=== PATIENT | female | born 1950 | race Two or more races ===

== ENCOUNTER 2016-06-19 16:19 | Inpatient (IN) | payer MEDICAID, OTHER ==
[~2016-06-19] VITALS: Ht 157.5 cm; Wt 81.6 kg
[~2016-06-19 16:19] MED LIST: ATIVAN0.5 MG ORAL; ATORVASTATIN CA10 MG ORAL; OYSTER SHELL C500 MG PO; RANITIDINE HCL150 MG ORAL; REGLAN10 MG PO; TRAMADOL HCL50 MG ORAL
[2016-06-19 16:39] VITALS: BP 123/64
[2016-06-19] MEDS ORDERED: cefTRIAXone 1 GM in NS 55 ML IV ONE (17:30)
[2016-06-19] MEDS ORDERED: Solu-MEDROL 125mg Inj IVP ONE (17:30)
[2016-06-19] MEDS ORDERED: Albuterol ud Inhalation HHN ONE (17:30)
[2016-06-19] MEDS ORDERED: Ipratropium 0.02% Inh Soln 2.5ml UD HHN ONE (17:30)
[2016-06-19] MEDS ORDERED: Morphine Sulfate 4mg/ml Inj IVP ONE (17:30)
[2016-06-19 18:05] LABS: BASOPHILS % (AUTO) 0.9 % (0.0-2.0); EOSINOPHILS % (AUTO) 3.3 % (0.0-3.0); LYMPHOCYTES % (AUTO) 29.9 % (20.0-45.0); MEAN CORPUSCULAR HEMOGLOBIN 30.6 PG (27.0-31.0); MEAN CORPUSCULAR VOLUME 85 FL (80-99); MEAN PLATELET VOLUME 6.9 FL (6.5-10.1); MONOCYTES % (AUTO) 8.3 % (1.0-10.0); NEUTROPHILS % (AUTO) 57.6 % (45.0-75.0); PLATELET COUNT 210 K/UL (150-450); RED BLOOD COUNT 3.91 M/UL (4.20-5.40); RED CELL DISTRIBUTION WIDTH 11.7 % (11.6-14.8); WHITE BLOOD COUNT 8.4 K/UL (4.8-10.8)
[2016-06-19 18:21] LABS: PROTHROMBIN TIME 9.8 SEC (9.30-11.50)
[2016-06-19 18:26] LABS: TROPONIN I < 0.30 ng/mL (<=0.30)
[2016-06-19 18:30] LABS: ALANINE AMINOTRANSFERASE 13 U/L (3-33); ALBUMIN/GLOBULIN RATIO 1.4 (1.0-2.7); ANION GAP 13 (5-15); ASPARTATE AMINO TRANSFERASE 8 U/L (5-40); CALCIUM 8.8 mg/dL (8.6-10.2); CARBON DIOXIDE 25 mEQ/L (20-30); CHLORIDE 103 mEQ/L (98-107); CREATININE 0.7 mg/dL (0.5-0.9); GLOMERULAR FILTRATION RATE > 60 mL/min (>60); HEMOLYSIS 9; POTASSIUM 3.8 mEQ/L (3.4-4.9); SODIUM 141 mEQ/L (135-145); TOTAL PROTEIN 6.2 g/dL (6.6-8.7)
[2016-06-19 18:39] VITALS: BP 131/62
--- NOTE | 2016-06-19 18:43 | Emergency Room Report ---
History of Present Illness General Chief Complaint: Dyspnea/Respdistress Source: Patient Present Illness HPI The patient is suffering from upper respiratory illness for about a month. She' s recently taken azithromycin by her doctor and and was prescribed an inhaler. She still has a cough that is keeping her awake at night. Also she is complaining of chest pain. The pain is intermittently severe 9/10, pleuritic and worse with coughing, not radiating. No productive phlegm. Inhaler has been used, some improvement with this. No NVD, extremity swelling, LANDEROS, rashes, dysuria. No recent fevers, though she feels chilled occasionally. Allergies: Coded Allergies: No Known Allergies (Unverified , 07/16/12) Patient History Past Medical History: see triage record Social History: Denies: smoking Social History Narrative with daughter, from [facility] Now: No Reviewed Nursing Documentation: PMH: Agreed, PSxH: Agreed Nursing Documentation-PMH Past Medical History: No History, Except For Hx Cardiac Problems: Yes - high cholesterol Hx Neurological Problems: Yes - anx depression Review of Systems All Other Systems: negative except mentioned in HPI Physical Exam Vital Signs Date Time Temp Pulse Resp B/P Pulse Ox O2 Delivery O2 Flow Rate FiO2 06/19/16 16:30 98.1 87 16 123/64 100 Room Air 06/19/16 17:33 21 Sp02 EP Interpretation: reviewed, normal General Appearance: well appearing, no apparent distress, GCS 15 Head: normocephalic, atraumatic Eyes: bilateral eye PERRL, bilateral eye normal inspection ENT: moist mucus membranes Neck: supple Respiratory: lungs clear, normal breath sounds Cardiovascular #1: regular rate, rhythm, no edema Cardiovascular #2: 2+ radial (R) Gastrointestinal: normal inspection, normal bowel sounds, non tender, no mass, non-distended, overweight Musculoskeletal: back normal, gait/station normal, normal range of motion, no calf tenderness Neurologic: alert, oriented x3, grossly normal Psychiatric: mood/affect normal Skin: normal inspection, warm/dry Medical Decision Making Diagnostic Impression: Primary Impression: Dyspnea Qualified Codes: R06.00 - Dyspnea, unspecified Additional Impressions: Chest pain Qualified Codes: R07.1 - Chest pain on breathing Pulmonary embolism Qualified Codes: I26.99 - Other pulmonary embolism without acute cor pulmonale Bronchospasm ER Course Patient presents with dyspnea and chest pain. It wheezing. She's post treatment with antibiotics recently. Differential includes pneumonia, asthmatic bronchitis, viral syndrome, pulmonary embolus. Also chest x-ray will be taken. D-dimer is ordered and if elevated a CT angiogram will be obtained. To be treated with albuterol and Solu-Medrol and started on antibiotics at this time. EKG is unremarkable. Chest x-ray does not show infiltrate. D-dimer returned quite elevated. The patient is improved with treatment in our a CT angiogram is ordered. Eosinophilia. CTA read as possible PEs. Heparin ordered. Improved with treatment. Admitted telemetry Dr. Flores. Laboratory Tests Test 06/19/16 17:30 06/19/16 19:00 White Blood Count 8.4 K/UL (4.8-10.8) Red Blood Count 3.91 M/UL (4.20-5.40) L Hemoglobin 12.0 G/DL (12.0-16.0) Hematocrit 33.3 % (37.0-47.0) L Mean Corpuscular Volume 85 FL (80-99) Mean Corpuscular Hemoglobin 30.6 PG (27.0-31.0) Mean Corpuscular Hemoglobin Concent 36.0 G/DL (32.0-36.0) Red Cell Distribution Width 11.7 % (11.6-14.8) Platelet Count 210 K/UL (150-450) Mean Platelet Volume 6.9 FL (6.5-10.1) Neutrophils (%) (Auto) 57.6 % (45.0-75.0) Lymphocytes (%) (Auto) 29.9 % (20.0-45.0) Monocytes (%) (Auto) 8.3 % (1.0-10.0) Eosinophils (%) (Auto) 3.3 % (0.0-3.0) H Basophils (%) (Auto) 0.9 % (0.0-2.0) Prothrombin Time 9.8 SEC (9.30-11.50) Prothrombin Time INR 1.0 (0.9-1.1) PTT 30 SEC (23-33) D-Dimer 1013 ng/mL (<500) H Sodium Level 141 mEQ/L (135-145) Potassium Level 3.8 mEQ/L (3.4-4.9) Chloride Level 103 mEQ/L (98-107) Carbon Dioxide Level 25 mEQ/L (20-30) Anion Gap 13 (5-15) Blood Urea Nitrogen 17 mg/dL (7-23) Creatinine 0.7 mg/dL (0.5-0.9) Estimate Glomerular Filtration Rate > 60 mL/min (>60) Glucose Level 147 mg/dL (74-106) H Lactic Acid Level 1.40 mmol/L (0.66-2.22) Calcium Level 8.8 mg/dL (8.6-10.2) Magnesium Level 2.0 mg/dL (1.7-2.5) Total Bilirubin < 0.2 mg/dL (0.0-1.2) Aspartate Amino Transferase (AST) 8 U/L (5-40) Alanine Aminotransferase (ALT) 13 U/L (3-33) Alkaline Phosphatase 67 U/L (35-104) Total Creatine Kinase 107 U/L (26-140) Troponin I < 0.30 ng/mL (<=0.30) Pro-B-Type Natriuretic Peptide 65 pg/mL (0-125) Total Protein 6.2 g/dL (6.6-8.7) L Albumin 3.7 g/dL (3.5-5.2) Globulin 2.5 g/dL Albumin/Globulin Ratio 1.4 (1.0-2.7) Urine Color Pale yellow Urine Appearance Clear Urine pH 6 (4.5-8.0) Urine Specific [place] 1.010 (1.005-1.035) Urine Protein Negative (NEGATIVE) Urine Glucose (UA) Negative (NEGATIVE) Urine Ketones Negative (NEGATIVE) Urine Occult Blood Negative (NEGATIVE) Urine Nitrite Negative (NEGATIVE) Urine Bilirubin Negative (NEGATIVE) Urine Urobilinogen Normal MG/DL (0.0-1.0) Urine Leukocyte Esterase 2+ (NEGATIVE) H Urine RBC 0-2 /HPF (0 - 2) Urine WBC 2-4 /HPF (0 - 2) Urine Squamous Epithelial Cells Few /LPF (NONE/OCC) Urine Bacteria Few /HPF (NONE) EKG Diagnostic Results Rate: normal Rhythm: NSR ST Segments: no acute changes Rhythm Strip Diag. Results EP Interpretation: yes Rhythm: NSR, no PVC's, no ectopy Chest X-Ray Diagnostic Results EP Interpretation: Yes Findings: no consolidation, no effusion, no pneumothorax, no acute cardiopulmonary disease Number of Views: 1 CT/MRI/US Diagnostic Results CT/MRI/US Diagnostic Results : Imaging Test Ordered: CTA chest Impression possible PEs Last Vital Signs Date Time Temp Pulse Resp B/P Pulse Ox O2 Delivery O2 Flow Rate FiO2 06/19/16 20:30 76 18 119/59 99 Room Air 06/19/16 18:39 98.1 06/19/16 17:51 21 Status: improved Disposition: ADMITTED INPATIENT Condition: Serious Referrals: [facility],REFERRING (PCP) Juan Lopez M.D. Jun 19, 2016 18:43
[2016-06-19 19:30] VITALS: BP 110/47
[2016-06-19 19:30] LABS: APPEARANCE,URINE CLEAR; KETONES,URINE NEGATIVE (NEGATIVE); LEUKOCYTE ESTERASE ,URINE 2+ (NEGATIVE); NITRITE,URINE NEGATIVE (NEGATIVE); PH,URINE 6 (4.5-8.0); PROTEIN,URINE NEGATIVE (NEGATIVE); UROBILINOGEN,URINE NORMAL MG/DL (0.0-1.0)
[2016-06-19 19:39] LABS: BACTERIA,URINE FEW /HPF; RBC,URINE 0-2 /HPF (0 - 2); SQUAMOUS EPITHELIAL CELL,UR FEW /LPF (NONE/OCC)
--- NOTE | 2016-06-19 20:28 | History & Physical ---
History and Physical History & Physicial HP dictated # [id number] KELLY WAGNER Jun 19, 2016 20:28
[2016-06-19 20:30] VITALS: BP 119/59
[2016-06-19] MEDS ORDERED: Morphine Sulfate 2mg/ml Inj IVP PRN (20:30)
[2016-06-19] MEDS ORDERED: Zolpidem 5mg tab ORAL PRN (20:30)
[2016-06-19] MEDS ORDERED: Morphine Sulfate 4mg/ml Inj IVP PRN (20:30)
[2016-06-19] MEDS ORDERED: Milk of Magnesia 30ml Ud ORAL PRN (20:30)
[2016-06-19] MEDS ORDERED: Heparin 25,000u/D5W 500ml 500 ML IV SCH ×3 (21:00→21:44)
[2016-06-19] MEDS: Ipratropium 0.02% Inh Soln 2.5ml UD HHN SCH (21:00)
[2016-06-19] MEDS ORDERED: Heparin 5000 units/ml inj IV ONE ×2 (21:00→21:30)
[2016-06-19 21:30] VITALS: BP 114/74
[2016-06-19 22:00] VITALS: BP 124/63
[2016-06-20] VITALS (7 sets, daily range): BP systolic 97–134; BP diastolic 46–75
[2016-06-20] MEDS: Ipratropium 0.02% Inh Soln 2.5ml UD HHN SCH ×4 (00:53→19:29)
[2016-06-20] MEDS: Heparin 25,000u/D5W 500ml 500 ML IV SCH ×2 (01:08→14:39)
[2016-06-20 01:30] LABS: MEAN CORPUSCULAR HEMOGLOBIN 28.2 PG (27.0-31.0); MEAN CORPUSCULAR HGB CONC 32.6 G/DL (32.0-36.0); MEAN CORPUSCULAR VOLUME 87 FL (80-99); MEAN PLATELET VOLUME 7.2 FL (6.5-10.1); PLATELET COUNT 229 K/UL (150-450); RED BLOOD COUNT 4.43 M/UL (4.20-5.40); RED CELL DISTRIBUTION WIDTH 12.3 % (11.6-14.8); WHITE BLOOD COUNT 8.5 K/UL (4.8-10.8)
[2016-06-20 01:49] LABS: CHOLESTEROL/HDL RATIO 2.9 (3.3-4.4)
[2016-06-20 01:50] LABS: TROPONIN I < 0.30 ng/mL (<=0.30)
[2016-06-20 02:00] LABS: THYROID STIMULATING HORMONE 0.437 uIU/mL (0.300-4.500)
--- NOTE | 2016-06-20 03:48 | History and Physical Report ---
DATE OF ADMISSION: 06/19/2016 CHIEF COMPLAINT: Shortness of breath and chest pain. HISTORY OF PRESENT ILLNESS: This is a 65-year-old female, who has had problems with breathing for about a months now. She said she has had a cough and occasional sputum. She feels worse when she lays down. She has had chest pain on and off. Today, she came with again chest pain and shortness of breath, which were worse. To the emergency room, the patient was admitted. PAST MEDICAL HISTORY: No known previous history of coronary disease No history of diabetes or hypertension. She has a history of hypercholesterolemia. MEDICATIONS: At admission none. SOCIAL HISTORY: No history of smoking or alcohol abuse. The patient lives at home. ALLERGIES: No known drug allergies. REVIEW OF SYSTEMS: Noncontributory except what was mentioned. PHYSICAL EXAMINATION: GENERAL: The patient is a 65-year-old female, in no acute distress. VITAL SIGNS: Blood pressure is 110/47, pulse 72, temperature 98.1, and respiratory rate is 15. HEENT: Pale conjunctivae. Anicteric sclerae. NECK: Supple. LUNGS: Clear to auscultation. HEART: S1 and S2 without murmurs or rubs. ABDOMEN: Soft and nontender. EXTREMITIES: No cyanosis or edema. LABORATORY FINDINGS: CBC shows WBC of 8.4, hematocrit is 32.3, hemoglobin is 12, and platelets 210,000. Chemistry panel shows sodium of 141, potassium 3.8, chloride 103, CO2 25, BUN is 17, creatinine 0.7, blood sugar is 147, lactic acid 1.4, and albumin is 2.7. UA shows no protein, basically benign. ASSESSMENT: This is a 65-year-old female, who has had chest pain on and off as well as shortness of breath for a month. The risk factor is mainly hyperlipidemia for coronary artery disease. Her symptoms also could be related to congestive heart failure as the patient's shortness of breath gets worse when she is lying down, finally underlying lung issues, such as chronic bronchitis cannot be ruled out. PLAN: The patient will be admitted to telemetry. She will be ruled out for myocardial infarction by troponins. An echocardiogram will be obtained to assess LV function. The patient will have a CT chest and result will be checked. We will also order lipid panel with [facility]. Edilberto Flores M.D. DR: SANNA JOB#: [id number] CC: [facility]
--- NOTE | 2016-06-20 09:27 | Diagnostic Imaging Report ---
Indications: Chest pain, shortness of breath, cough, respiratory congestion, elevated d-dimer level Technique: Continuous helical CT imaging of the thorax was performed with automatic exposure control, following bolus intravenous administration of nonionic iodine contrast, on a Siemens sensation [address] scanner. Axial images reconstructed at 3 mm slice thickness and 1.5 mm interval. Coronal and sagittal images were reconstructed at 3 mm slice thickness. Coronal and sagittal two-dimensional maximum intensity projection and three-dimensional volume-rendered images were reconstructed on a stand alone workstation. CTDI volume(s): 13x3, 25, 30 mGy Total DLP: 949 mGy-cm Findings: Comparison: None Motion artifact substantially degrades images. There is suggestion of one or more small low attenuation intraluminal filling defects within one or more branches of the right pulmonary artery supplying the posterior basal segment of the right lower lobe. This area is especially degraded by motion motion with substantial misregistration/stomach artifact. No other pulmonary arterial intraluminal filling defects are demonstrated. Central pulmonary arteries are not overtly enlarged. Heart is overall enlarged without significant left ventricular enlargement. No pericardial abnormality. Thoracic aorta and great vessels are patent and well-opacified with mild scattered calcified plaquing, normal in caliber and configuration. No evidence of aneurysm, dissection, or leak. No mediastinal or hilar enlarged lymph nodes, other abnormal mass or fluid collection. Irregular pleural-based linear densities and mildly increased interstitial markings and dependent portions of both lung bases, right greater than left. Elevation of right hemidiaphragm. No obvious pleural abnormality. 2 cm circumscribed nodular parenchymal asymmetry lateral aspect right breast. Remainder chest wall soft tissues nonfocal. Imaged upper abdominal anatomy unremarkable. Multilevel disc space narrowing with marginal osteophyte formation, vacuum phenomenon in thoracic spine. IMPRESSION: One or more small pulmonary emboli in right pulmonary arterial branches to the posterior basal segment of the right lower lobe cannot be excluded, due to significant motion and resultant artifact. No evidence of large central pulmonary emboli or elevated right heart pressure. Bilateral pulmonary dependent opacities most likely atelectatic in nature Cardiomegaly Masslike parenchymal symmetry right breast, nonspecific. Mammographic and sonographic correlation recommended. Degenerative spondylosis Preliminary report placed in PACS, findings discussed with Dr. Lopez, physician, by telephone 06/19/16 at 2662
--- NOTE | 2016-06-20 11:27 | General Progress Note ---
Assessment/Plan Problem List: (1) Dyspnea ICD Codes: R06.00 - Dyspnea, unspecified SNOMED: 426310367 Qualifiers: Qualified Codes: R06.00 - Dyspnea, unspecified (2) Pulmonary embolism ICD Codes: I26.99 - Other pulmonary embolism without acute cor pulmonale SNOMED: 94471393, [id number] Qualifiers: Qualified Codes: I26.99 - Other pulmonary embolism without acute cor pulmonale (3) Chest pain ICD Codes: R07.9 - Chest pain, unspecified SNOMED: [id number] Qualifiers: Qualified Codes: R07.1 - Chest pain on breathing Assessment/Plan Check Echo pulm consult Discussed with family anticoagulation Subjective Allergies: Coded Allergies: No Known Allergies (Unverified , 07/16/12) Subjective slightly better Objective Last 24 Hour Vital Signs Date Time Temp Pulse Resp B/P Pulse Ox O2 Delivery O2 Flow Rate FiO2 06/20/16 08:01 64 06/20/16 07:56 98.8 76 18 105/65 95 Room Air 06/20/16 07:18 77 18 100 Nasal Cannula 2.0 06/20/16 07:12 73 14 99 Nasal Cannula 2.0 06/20/16 04:00 78 06/20/16 04:00 99.1 73 18 125/61 97 Nasal Cannula 2.0 28 06/20/16 00:54 73 18 100 Nasal Cannula 2.0 28 06/20/16 00:50 28 06/20/16 00:50 71 14 99 Nasal Cannula 2.0 28 06/20/16 00:00 82 06/20/16 00:00 98.1 81 18 122/72 95 Room Air 21 06/19/16 22:07 98.1 65 15 124/63 95 Room Air 21 06/19/16 22:00 65 15 124/63 95 Room Air 06/19/16 21:30 81 16 114/74 98 Room Air 06/19/16 20:30 76 18 119/59 99 Room Air 06/19/16 19:30 72 15 110/47 97 Room Air 06/19/16 18:39 98.1 83 16 131/62 100 Room Air 06/19/16 18:27 98.1 06/19/16 17:51 72 18 100 Room Air 21 06/19/16 17:33 60 14 100 Room Air 21 06/19/16 17:33 60 14 Room Air 21 06/19/16 17:33 21 06/19/16 16:39 87 16 Room Air 06/19/16 16:39 98.1 69 16 123/64 100 Room Air 06/19/16 16:30 98.1 87 16 123/64 100 Room Air Intake and Output 06/19/16 06/20/16 19:00 07:00 Intake Total 120 ml 473.651 ml Balance 120 ml 473.651 ml Intake Oral 120 ml 240 ml IV Total 233.651 ml # Voids 1 Laboratory Tests 06/19/16 17:30: White Blood Count 8.4, Red Blood Count 3.91L, Hemoglobin 12.0, Hematocrit 33.3L , Mean Corpuscular Volume 85, Mean Corpuscular Hemoglobin 30.6, Mean Corpuscular Hemoglobin Concent 36.0, Red Cell Distribution Width 11.7, Platelet Count 210, Mean Platelet Volume 6.9, Neutrophils (%) (Auto) 57.6, Lymphocytes (% ) (Auto) 29.9, Monocytes (%) (Auto) 8.3, Eosinophils (%) (Auto) 3.3H, Basophils (%) (Auto) 0.9, Prothrombin Time 9.8, Prothromb Time International Ratio 1.0, Activated Partial Thromboplast Time 30, D-Dimer 1013H, Sodium Level 141, Potassium Level 3.8, Chloride Level 103, Carbon Dioxide Level 25, Anion Gap 13, Blood Urea Nitrogen 17, Creatinine 0.7, Estimat Glomerular Filtration Rate > 60 , Glucose Level 147H, Lactic Acid Level 1.40, Calcium Level 8.8, Magnesium Level 2.0, Total Bilirubin < 0.2, Aspartate Amino Transf (AST/SGOT) 8, Alanine Aminotransferase (ALT/SGPT) 13, Alkaline Phosphatase 67, Total Creatine Kinase 107, Troponin I < 0.30, Pro-B-Type Natriuretic Peptide 65, Total Protein 6.2L, Albumin 3.7, Globulin 2.5, Albumin/Globulin Ratio 1.4 06/19/16 19:00: Urine Color Pale yellow, Urine Appearance Clear, Urine pH 6, Urine Specific [place] 1.010, Urine Protein Negative, Urine Glucose (UA) Negative, Urine Ketones Negative, Urine Occult Blood Negative, Urine Nitrite Negative, Urine Bilirubin Negative, Urine Urobilinogen Normal, Urine Leukocyte Esterase 2+H, Urine RBC 0-2, Urine WBC 2-4, Urine Squamous Epithelial Cells Few, Urine Bacteria Few 06/20/16 01:20: White Blood Count 8.5, Red Blood Count 4.43, Hemoglobin 12.5, Hematocrit 38.4, Mean Corpuscular Volume 87, Mean Corpuscular Hemoglobin 28.2, Mean Corpuscular Hemoglobin Concent 32.6, Red Cell Distribution Width 12.3, Platelet Count 229, Mean Platelet Volume 7.2, Neutrophils (%) (Auto) , Lymphocytes (%) (Auto) , Monocytes (%) (Auto) , Eosinophils (%) (Auto) , Basophils (%) (Auto) , Activated Partial Thromboplast Time 92H, Troponin I < 0.30, Triglycerides Level 83, Cholesterol Level 209H, LDL Cholesterol 121H, HDL Cholesterol 71H, Cholesterol/HDL Ratio 2.9L, Thyroid Stimulating Hormone (TSH) 0.437 06/20/16 05:30: Activated Partial Thromboplast Time 84H Height (Feet): 5 Height (Inches): 2.00 Weight (Pounds): 180 Cardiovascular: normal rate Respiratory/Chest: lungs clear Edema: no edema noted Generalized KELLY WAGNER Jun 20, 2016 11:27
[2016-06-20] MEDS ORDERED: LIPITOR80 MG ORAL (17:33)
--- NOTE | 2016-06-20 19:25 | Cardiology Report ---
APPROVED REPORT EXAM: Two-dimensional and M-mode echocardiogram with Doppler and color Doppler. INDICATION Congestive Heart Failure M-Mode DIMENSIONS IVSd0.8 (0.7-1.1cm)Left Atrium (MM)3.5 (1.6-4.0cm) LVDd5.2 (3.5-5.6cm)Aortic Root2.4 (2.0-3.7cm) PWd0.8 (0.7-1.1cm)Aortic Cusp Exc.1.8 (1.5-2.0cm) LVDs3.2 (2.5-4.0cm) PWs1.1 cm Normal left ventricular chamber size, systolic function and wall motion. Left ventricular ejection fraction estimated to be 60-65%. No evidence of left ventricular hypertrophy. No evidence of pericardial fat or effusion. Mild left atrial enlargement by 2D. Right cardiac chamber sizes are within normal limits. Focal aortic valve sclerosis with adequate cusp excursion Thickened mitral valve leaflets with normal excursion. Mitral annulus and aortic root calcification. Pulmonic valve not well visualized. Normal tricuspid valve structure. IVC is normal in size with physiologic collapse. A color flow and spectral Doppler study was performed and revealed: No aortic regurgitation. No mitral regurgitation. Left ventricular diastolic dysfunction grade 1. Mild tricuspid regurgitation. Tricuspid systolic velocities suggests peak right ventricular systolic pressure of 31 mmHg
--- NOTE | 2016-06-20 20:17 | Consultation ---
Consult Note Assessment/Plan [id number] see CT report, motion artifact can't exclude Pe will obtain VQ if LP can dc heparin no EO cardiac disease, echo is normal ? early stages of IPF, may need HRCT as an out pt check RA ROSA Shields DO Jun 20, 2016 20:17
[2016-06-20 20:49] LABS: TROPONIN I < 0.30 ng/mL (<=0.30)
[2016-06-21] VITALS: BP 138/66
[2016-06-21] MEDS: Ipratropium 0.02% Inh Soln 2.5ml UD HHN SCH ×3 (01:22→12:50)
--- NOTE | 2016-06-21 02:58 | Consultation ---
DATE OF CONSULTATION: 06/20/2016 REASON FOR CONSULTATION: Shortness of breath. HISTORY OF PRESENT ILLNESS: The patient was admitted to the facility with shortness of breath for few months. She has had cough with some sputum production. No chest pain, nausea, vomiting, or diarrhea. She felt that she was more short of breath when she was in the supine position. She is maintained on supplemental oxygen. She was initially felt to have congestive heart failure, right now concerned for pneumonia. She was seen in the emergency room. A CT scan of her chest was obtained. Per the report and reviewing of the images, unfortunately significant amount of motion artifact potentially degraded the images. There is suggestion of one or more small low-attenuated intraluminal filling defects with one on one branches of the right pulmonary artery supplying the posterior basal segment. This area is especially degraded with motion and miss registration of stomach artifact. Otherwise, three is no other arterial intraluminal filling defects are demonstrated. Central pulmonary arteries are not overly enlarged. Therefore, the impression finally states that one or more small pulmonary emboli and right pulmonary artery branches. Posterior basal segment of the right lower lobe can not be excluded due to significant motion artifact. This is not a conclusive report, but she has been placed on heparin and a V/Q scan has been ordered. She also has some scarring, which may indicate early stages of pulmonary fibrosis, but this is again not a high-resolution CT scan for definitive diagnosis of entities including UIP in addition of breast lesion, but the patient states she has had a mammogram within the last month and was told that it was a cyst and normal. PAST MEDICAL HISTORY: Includes obesity and hypertension. No diabetes, coronary artery disease, or hypercholesterolemia. PAST SURGICAL HISTORY: Negative. SOCIAL HISTORY: Negative tobacco, alcohol, or drugs. She lives at home. ALLERGIES: She has no known drug allergies. MEDICATIONS: hospital medications to note have been re-ordered. PHYSICAL EXAMINATION: GENERAL: At the time of my exam, she is alert. She is oriented. She is in no acute respiratory distress. VITAL SIGNS: She is afebrile, pulse is 78, respirations 15, and she is on 100% on room air. HEENT: Normocephalic and atraumatic. Oropharynx is moist. Nasal mucosa is moist. NECK: Supple without lymphadenopathy or thyromegaly. LUNGS: Decreased at the bases with scant crackles to be noted. HEART: Regular. ABDOMEN: Obese, soft, and nontender. EXTREMITIES: There is no edema. NEUROLOGIC: No focal neurologic deficits. Cranial nerves II through XII are intact. SKIN: No skin rashes, wounds, or lesions are present. PSYCHIATRIC: Her affect is appropriate. IMAGING STUDIES: As previously described. LABORATORY DATA: White count of 85, hemoglobin 12.5, and platelets are 229,000. Her sodium is 141, potassium 3.8, chloride 103, bicarbonate 25, BUN 17, and creatinine 0.7. Glucose is 145. Her cholesterol is elevated at 121. No cultures are pending at this time. In addition, an echo was obtained. Her EF is 60% to 65%. No evidence of pulmonary arterial hypertension. ASSESSMENT AND PLAN: Shortness of breath for many months. A CT scan of the chest to evaluate for pulmonary embolism this with unfortunately significant motion artifact and therefore cannot definitively exclude PE, obesity, or hypertension. Plan for the patient at this point, we would obtain a V/Q scan and if her V/Q scan is a low probability, I am comortable in stating that the patient does not have underlying pulmonary emboli. She can be further evaluated with high-resolution CT scan of her chest as an outpatient to assess for early stages of pulmonary fibrosis including UIP. She has no clotting history or reasons for underlying DVT or clotting disorders. The patient does not smoke and does not have any evidence of chronic obstructive pulmonary disease or emphysematous changes. and her echocardiogram does not indicate underlying congestive heart failure or cardiac dysfunction. We will check room air saturations and will continue to follow the patient, her heparin is currently being managed by the pharmacy and we will continue to monitor. Kelsey Cerda D.O. DR: NATALIIA JOB#: [id number] CC:
[2016-06-21 04:00] VITALS: BP 125/51
[2016-06-21 06:34] LABS: TROPONIN I < 0.30 ng/mL (<=0.30)
[2016-06-21] MEDS: Heparin 25,000u/D5W 500ml 500 ML IV SCH (06:44)
[2016-06-21 08:00] VITALS: BP 110/55
--- NOTE | 2016-06-21 09:42 | Diagnostic Imaging Report ---
Indication: COUGH Technique: Single portable AP view of the chest. Findings: Comparison: None. Cardiac silhouette enlarged. Thoracic vertebral osteophytes. The remaining bones and extra pulmonary soft tissues, remainder of the cardiomediastinal silhouette, pulmonary vasculature and parenchyma, and pleural surfaces are unremarkable. IMPRESSION: No evidence of acute cardio pulmonary disease Cardiomegaly Degenerative spondylosis.
--- NOTE | 2016-06-21 11:28 | Diagnostic Imaging Report ---
Indications: Shortness of breath Technique: IV administration 6 point mCi 99m technetium macroaggregated albumin. Images obtained over the lungs in multiple projections. Previously, patient inhaled 41 mCi aerosolized 99M technetium DTPA. Images obtained over the lungs in multiple projections Comparison: Reference made to chest CT angiogram of 06/19/2016. Comparison chest radiograph of 06/19/2016 Findings: No segmental or subsegmental perfusion defects are demonstrated. No evidence of ventilation/perfusion mismatch. No perfusion defects at the right lung base are seen that would correspond to the questionable abnormality described on recent chest CT Impression: Findings are deemed low probability for pulmonary embolus
[2016-06-21 12:00] VITALS: BP 132/62
--- NOTE | 2016-06-21 13:06 | Pulmonology Progress Note ---
Assessment/Plan Assessment/Plan Dyspnea, no evidence of PE obesity hypertension hyperlipidemia VQ neg dc heparin dc plan further eval outpatient, ?stress echo Subjective Respiratory: Denies: pleuritic pain, shortness of breath Allergies: Coded Allergies: No Known Allergies (Unverified , 07/16/12) Objective Last 24 Hour Vital Signs Date Time Temp Pulse Resp B/P Pulse Ox O2 Delivery O2 Flow Rate FiO2 06/21/16 12:50 66 18 99 Room Air 21 06/21/16 12:50 21 06/21/16 08:45 65 20 100 Room Air 21 06/21/16 08:34 64 19 95 Room Air 21 06/21/16 08:34 28 06/21/16 08:00 53 06/21/16 08:00 97.7 56 18 110/55 91 Room Air 06/21/16 04:00 59 06/21/16 04:00 97.5 61 17 125/51 95 Room Air 06/21/16 01:29 76 16 100 Room Air 06/21/16 01:23 77 16 97 Room Air 06/21/16 00:00 56 06/21/16 00:00 97.4 61 18 138/66 96 Room Air 06/20/16 20:00 87 06/20/16 20:00 97.9 67 16 128/75 98 Room Air 06/20/16 19:38 78 16 100 Room Air 06/20/16 19:32 79 16 96 Room Air 06/20/16 17:59 134/62 06/20/16 16:12 68 06/20/16 15:25 96.8 81 18 97/46 95 Room Air Intake and Output 06/20/16 06/21/16 19:00 07:00 Intake Total 1082.716 ml 294.476 ml Balance 1082.716 ml 294.476 ml Intake Oral 730 ml IV Total 352.716 ml 294.476 ml # Voids 3 2 General Appearance: no acute distress Respiratory/Chest: lungs clear Cardiovascular: normal rate Microbiology Date/Time Source Procedure Growth Status 06/19/16 17:35 Blood Blood Culture - Preliminary NO GROWTH AFTER 24 HOURS Resulted 06/19/16 17:25 Blood Blood Culture - Preliminary NO GROWTH AFTER 24 HOURS Resulted Laboratory Tests 06/20/16 20:10: Troponin I < 0.30 06/21/16 05:20: Troponin I < 0.30, Activated Partial Thromboplast Time 69H Current Medications Medications (Trade) Dose Ordered Sig/Nadia Route PRN Reason Start Time Stop Time Status Last Admin Dose Admin Heparin Sodium/ Dextrose (Heparin) 500 ml @ 29.393 mls/ hr adjust per protocol IV 06/20/16 01:00 07/20/16 00:59 06/21/16 06:44 Ipratropium [place] (Atrovent) 500 mcg EVERY 6 HOURS HHN 06/19/16 21:00 06/24/16 20:59 06/21/16 12:50 Magnesium Hydroxide (Mom) 30 ml HSPRN PRN ORAL Constipation 06/19/16 20:30 07/19/16 20:29 06/20/16 23:00 Morphine Sulfate (Morphine Sulfate) 2 mg Q3H PRN IVP Moderate Pain (Pain Scale 4-6) 06/19/16 20:30 06/26/16 20:29 06/20/16 00:12 Morphine Sulfate (Morphine Sulfate) 4 mg Q3H PRN IVP Severe Pain (Pain Scale 7-10) 06/19/16 20:30 06/26/16 20:29 Ondansetron HCl (Zofran) 4 mg Q6H PRN IVP Nausea & Vomiting 06/19/16 20:30 07/19/16 20:29 06/20/16 00:10 Ranitidine HCl (Zantac) 150 mg TWICE A DAY ORAL 06/19/16 21:00 07/19/16 20:59 06/21/16 08:21 Zolpidem Tartrate 5 mg 5 mg HSPRN PRN ORAL Insomnia 06/19/16 20:30 07/19/16 20:29 06/21/16 02:02 PAMELA SALAZAR Jun 21, 2016 13:06
--- NOTE | 2016-06-21 15:14 | Consultation ---
Consult Note Assessment/Plan Dc dictated # [id number] KELLY WAGNER Jun 21, 2016 15:14
[2016-06-21] MEDS ORDERED: NS 275ml ONE (16:06)
[2016-06-21] MEDS ORDERED: D5 1/2NS 1000ml IV ONE (16:06)
[2016-06-21] MEDS ORDERED: Tubing IV Secondary IV ONE (16:06)
--- NOTE | 2016-06-21 23:28 | Discharge Summary ---
DATE OF ADMISSION: 06/19/2016 DATE OF DISCHARGE: 06/21/2016 CHIEF COMPLAINT: Shortness of breath. HISTORY OF PRESENT ILLNESS: This is a 65-year-old, female, who was admitted with shortness of breath and some chest pain. For the details please refer to History and Physical. HOSPITAL COURSE: The patient had a CT angiogram with a suspicion of some pulmonary embolism. She was started on IV heparin. The patient was seen by Dr. Fink in renal consultation. VQ scan was ordered and this was negative. The patient also had an echocardiogram, which basically was unremarkable. The patient had a good ejection fraction and no diastolic dysfunction. The patient was finally sent home and she was advised to follow up with her primary medical doctor for possible stress testing and coronary angiogram. DISCHARGE DIAGNOSES: 1. Atypical chest pain. 2. Dyspnea. DISCHARGE MEDICATIONS: The patient was told to take aspirin one a day 81 mg. Edilberto Flores M.D. DR: JULIA JOB#: [id number] CC:
== END 2016-06-21 16:07 | disposition home or self-care (01) | DRG 203 ==
LOC: ENRESERVDT → ENRESERVTM → EMR 16:49 → 2E 19:05 → EDBEDREQ 19:57 → 2E 22:44
DX: R07.89 Other chest pain (principal); I10 Essential (primary) hypertension; R06.00 Dyspnea, unspecified; E66.9 Obesity, unspecified; E78.5 Hyperlipidemia, unspecified
CPT/HCPCS: 36415; 71010; 71275; 78579; 78580; 80053; 80061; 81003; 82550; 83605; 83735; 83880; 84443; 84484; 85025; 85379; 85610; 85730; 87040; 93005; 93306; 94640; 94664; A9503; J2405

== ENCOUNTER 2017-03-22 16:28 | Inpatient (IN) | payer MEDICAID, OTHER ==
[~2017-03-22] VITALS: Ht 149.9 cm; Wt 80.7 kg
[~2017-03-22 16:28] MED LIST changes: +LIPITOR80 MG ORAL
[2017-03-22] MEDS ORDERED: PROMETHAZINE V473 ML PO (16:41)
[2017-03-22] MEDS ORDERED: AZITHROMYCIN250 MG ORAL (16:41)
[2017-03-22] MEDS ORDERED: OMEPRAZOLE20 M2 ORAL (16:43)
[2017-03-22] MEDS ORDERED: VENTOLIN HFA18 GM INH (16:43)
[2017-03-22] MEDS ORDERED: ATORVASTATIN CA10 MG ORAL (16:43)
[2017-03-22] MEDS ORDERED: SERTRALINE HCL50 MG ORAL (16:43)
[2017-03-22] MEDS ORDERED: CLOPIDOGREL75 MG ORAL (16:43)
[2017-03-22 16:51] VITALS: BP 120/102
[2017-03-22 17:40] LABS: BASOPHILS % (AUTO) 0.7 % (0.0-2.0); EOSINOPHILS % (AUTO) 0.8 % (0.0-3.0); HEMATOCRIT 40.5 % (37.0-47.0); HEMOGLOBIN 13.4 G/DL (12.0-16.0); LYMPHOCYTES % (AUTO) 12.3 % (20.0-45.0); MEAN CORPUSCULAR VOLUME 85 FL (80-99); MONOCYTES % (AUTO) 11.4 % (1.0-10.0); NEUTROPHILS % (AUTO) 74.9 % (45.0-75.0); PLATELET COUNT 227 K/UL (150-450); RED BLOOD COUNT 4.78 M/UL (4.20-5.40); RED CELL DISTRIBUTION WIDTH 12.2 % (11.6-14.8); WHITE BLOOD COUNT 8.1 K/UL (4.8-10.8)
[2017-03-22 17:52] LABS: ANION GAP 10 mmol/L (5-15); BLOOD UREA NITROGEN 14 mg/dL (7-18); CALCIUM 8.9 MG/DL (8.5-10.1); CARBON DIOXIDE 27 MMOL/L (21-32); CHLORIDE 103 MMOL/L (98-107); CREATININE 1.1 MG/DL (0.55-1.30); POTASSIUM 3.8 MMOL/L (3.5-5.1); SODIUM 140 MMOL/L (136-145)
[2017-03-22 18:06] LABS: ALANINE AMINOTRANSFERASE 17 U/L (12-78); ALBUMIN 3.6 G/DL (3.4-5.0); ALBUMIN/GLOBULIN RATIO 0.9 (1.0-2.7); ALKALINE PHOSPHATASE 71 U/L (46-116); ASPARTATE AMINO TRANSFERASE 8 U/L (15-37); BILIRUBIN,TOTAL 0.3 MG/DL (0.2-1.0); CKMB 0.5 NG/ML (0.0-3.6); CREATINE KINASE 130 U/L (26-308)
[2017-03-22 18:11] VITALS: BP 135/55
[2017-03-22] MEDS ORDERED: Oseltamivir 75mg cap ORAL ONE (18:15)
--- NOTE | 2017-03-22 18:27 | Emergency Room Report ---
History of Present Illness General Chief Complaint: General Complaint Source: Patient, Family Member Present Illness HPI 66-year-old female presents to ED for evaluation. Patient states that she's been feeling short of breath with cough for the last several weeks. Patient has a temp of 102.8 in triage. States cough is productive with yellowish phlegm. Complaining of pain due to coughing. Denies nausea or vomiting. Denies any weakness. States that she had a blood clot in her lung and was treated here last year. Is currently not taking any blood thinners. No other aggravating factors. Denies any other associated symptoms Allergies: Coded Allergies: No Known Allergies (Unverified , 07/16/12) Patient History Past Medical History: psych hx Pertinent Family History: none Social History: Denies: smoking, alcohol use, drug use Last Menstrual Period: Post Now: No Immunizations: UTD Reviewed Nursing Documentation: PMH: Agreed, PSxH: Agreed Nursing Documentation-PMH Hx Cardiac Problems: Yes - high cholesterol Hx Asthma: Yes - Pulmonary Embolism Hx Diabetes: No Hx Cancer: No Hx Neurological Problems: Yes - anx depression Hx Headaches: Yes Hx Fatigue: Yes - past week Review of Systems All Other Systems: negative except mentioned in HPI Physical Exam Vital Signs Date Time Temp Pulse Resp B/P (MAP) Pulse Ox O2 Delivery O2 Flow Rate FiO2 03/22/17 16:33 102.7 112 22 131/79 94 Room Air Sp02 EP Interpretation: reviewed, normal General Appearance: no apparent distress, alert, GCS 15, non-toxic Head: normocephalic, atraumatic Eyes: bilateral eye normal inspection, bilateral eye PERRL ENT: hearing grossly normal, normal pharynx, no angioedema, normal voice Neck: full range of motion, supple/symm/no masses Respiratory: chest non-tender, lungs clear, normal breath sounds, speaking full sentences Cardiovascular #1: regular rate, rhythm, no edema Cardiovascular #2: 2+ carotid (R), 2+ carotid (L), 2+ radial (R), 2+ radial (L) , 2+ dorsalis pedis (R), 2+ dorsalis pedis (L) Gastrointestinal: normal bowel sounds, non tender, soft, non-distended, no guarding, no rebound Rectal: deferred Genitourinary: normal inspection, no CVA tenderness Musculoskeletal: back normal, gait/station normal, normal range of motion, non- tender Neurologic: alert, oriented x3, responsive, motor strength/tone normal, sensory intact, speech normal Psychiatric: judgement/insight normal, memory normal, mood/affect normal, no suicidal/homicidal ideation Reflexes: 3+ bicep (R), 3+ bicep (L), 3+ tricep (R), 3+ tricep (L), 3+ knee (R) , 3+ knee (L) Skin: normal color, no rash, warm/dry, well hydrated Lymphatic: no adenopathy Medical Decision Making Diagnostic Impression: Primary Impression: Influenza A Additional Impression: Shortness of breath ER Course Hospital Course 66-year-old female presents to ED with chest pain, shortness of breath, fever and cough Differential diagnoses include: Pneumonia, CHF exacerbation, pneumothorax, fluid overload Clinical course Patient placed on stretcher. On equipment monitor phototypesetting. After initial history and physical, I ordered labs, IV fluids, EKG, chest x-ray, UA. Labs - no leukocytosis, hb/hct stable, electrolytes ok, influenza A+, trop 0.071 CXR - no acute infiltrates EKG - NSR, no acute ischemic changes interpreted by me I reviewed EMR. Patient was admitted here in May 2016. CTA chest which showed motion artifact, but ? PE. patient was admitted and given anticoagulation. V/Q scan confirmed no PE. patient was not discharged on blood thinners. I conveyed these findings to the family and patient that she did not in fact have a PE Given Tamiflu. Given shortness of breath with mildly elevated troponin believe patient should be admitted. Given aspirin patient admitted to Dr Townsend I feel this is a highly complex case requiring extensive working including EKG/ Rhythm strip, Xray/CT/US, Blood/urine lab work, repeat exams while in ED, and administration of strong opiates/narcotics for pain control, admission to hospital or close patient follow up. Diagnosis - influenza A, shortness of breath Patient admitted to telemetry in serious condition Labs Test 03/22/17 17:18 White Blood Count 8.1 K/UL (4.8-10.8) Red Blood Count 4.78 M/UL (4.20-5.40) Hemoglobin 13.4 G/DL (12.0-16.0) Hematocrit 40.5 % (37.0-47.0) Mean Corpuscular Volume 85 FL (80-99) Mean Corpuscular Hemoglobin 28.0 PG (27.0-31.0) Mean Corpuscular Hemoglobin Concent 33.1 G/DL (32.0-36.0) Red Cell Distribution Width 12.2 % (11.6-14.8) Platelet Count 227 K/UL (150-450) Mean Platelet Volume 7.1 FL (6.5-10.1) Neutrophils (%) (Auto) 74.9 % (45.0-75.0) Lymphocytes (%) (Auto) 12.3 % (20.0-45.0) Monocytes (%) (Auto) 11.4 % (1.0-10.0) Eosinophils (%) (Auto) 0.8 % (0.0-3.0) Basophils (%) (Auto) 0.7 % (0.0-2.0) Sodium Level 140 MMOL/L (136-145) Potassium Level 3.8 MMOL/L (3.5-5.1) Chloride Level 103 MMOL/L (98-107) Carbon Dioxide Level 27 MMOL/L (21-32) Anion Gap 10 mmol/L (5-15) Blood Urea Nitrogen 14 mg/dL (7-18) Creatinine 1.1 MG/DL (0.55-1.30) Estimat Glomerular Filtration Rate 50.0 mL/min (>60) Glucose Level 121 MG/DL (74-106) Lactic Acid Level 1.50 mmol/L (0.66-2.22) Calcium Level 8.9 MG/DL (8.5-10.1) Total Bilirubin 0.3 MG/DL (0.2-1.0) Aspartate Amino Transf (AST/SGOT) 8 U/L (15-37) Alanine Aminotransferase (ALT/SGPT) 17 U/L (12-78) Alkaline Phosphatase 71 U/L (46-116) Total Creatine Kinase 130 U/L (26-308) Creatine Kinase MB 0.5 NG/ML (0.0-3.6) Creatine Kinase MB Relative Index 0.3 Troponin I 0.071 ng/mL (0.000-0.056) Pro-B-Type Natriuretic Peptide 71 pg/mL (0-125) Total Protein 7.4 G/DL (6.4-8.2) Albumin 3.6 G/DL (3.4-5.0) Globulin 3.8 g/dL Albumin/Globulin Ratio 0.9 (1.0-2.7) EKG Diagnostic Results Rate: normal Rhythm: NSR ST Segments: no acute changes ASA given to the pt in ED: Yes Rhythm Strip Diag. Results EP Interpretation: yes Rhythm: NSR, no PVC's, no ectopy Chest X-Ray Diagnostic Results Chest X-Ray Diagnostic Results : Chest X-Ray Ordered: Yes # of Views/Limited/Complete: 1 View Indication: Shortness of Breath EP Interpretation: Yes Interpretation: no consolidation, no effusion, no pneumothorax, no acute cardiopulmonary disease Impression: No acute disease Electronically Signed by: Electronically signed by Alan Evans MD Last Vital Signs Date Time Temp Pulse Resp B/P (MAP) Pulse Ox O2 Delivery O2 Flow Rate FiO2 03/22/17 18:11 101.3 89 14 135/55 Room Air 03/22/17 16:51 95 Status: improved Disposition: ADMITTED INPATIENT Condition: Serious Referrals: NON PHYSICIAN (PCP) ALAN EVANS M.D. Mar 22, 2017 18:27
[2017-03-22] MEDS ORDERED: PYRIDOXINE HCL50 MG ORAL (19:33)
[2017-03-22] MEDS ORDERED: MOBIC15 MG ORAL (19:34)
[2017-03-22 19:55] VITALS: BP 117/53
[2017-03-22 20:11] LABS: APPEARANCE,URINE CLEAR; BILIRUBIN, URINE NEGATIVE (NEGATIVE); COLOR,URINE PALE YELLOW; GLUCOSE, URINE (UA) NEGATIVE (NEGATIVE); KETONES,URINE NEGATIVE (NEGATIVE); LEUKOCYTE ESTERASE ,URINE NEGATIVE (NEGATIVE); NITRITE,URINE NEGATIVE (NEGATIVE); PH,URINE 6 (4.5-8.0); PROTEIN,URINE NEGATIVE (NEGATIVE); UROBILINOGEN,URINE NORMAL MG/DL (0.0-1.0)
[2017-03-22] MEDS ORDERED: Albuterol/Ipratropium 3ml neb HHN PRN (20:45)
[2017-03-22] MEDS ORDERED: Miralax 17gm pkt ORAL PRN (20:45)
[2017-03-22] MEDS ORDERED: dilTIAZem HCl 25mg/5ml Inj IV PRN (20:45)
[2017-03-22] MEDS ORDERED: Enalaprilat 2.5mg/2ml Inj IV PRN (20:45)
[2017-03-22] MEDS ORDERED: Nitroglycerin Subl 0.4mg tab SL PRN (20:45)
[2017-03-22] MEDS ORDERED: Ketorolac 30mg Inj IV PRN (20:45)
[2017-03-22] MEDS ORDERED: Morphine Sulfate 2mg/ml Inj IVP PRN (20:45)
[2017-03-22 21:15] VITALS: BP 112/55
[2017-03-22] MEDS: Heparin 5000 units/ml inj SUBQ SCH (22:15)
[2017-03-23] VITALS: BP 124/63
[2017-03-23 04:00] VITALS: BP_SYST 119; BP_SYST 165; BP_DIAS 62; BP_DIAS 92
[2017-03-23 08:00] VITALS: BP 132/66
--- NOTE | 2017-03-23 08:31 | Diagnostic Imaging Report ---
Indication: Reason For Exam: SOB Technique: One view of the chest Comparison: 06/19/2016 Findings: Lungs and pleural spaces are clear. Heart size is normal . No significant interim change Impression: No acute process
[2017-03-23] MEDS ORDERED: Sertraline 50mg tab ORAL SCH (09:00)
[2017-03-23] MEDS ORDERED: Pyridoxine 50mg tab ORAL SCH (09:00)
[2017-03-23] MEDS ORDERED: Aspirin Baby 81mg ORAL SCH (09:00)
[2017-03-23] MEDS ORDERED: Promethazine/Codeine 5ml UD ORAL PRN ×2 (09:15→19:45)
[2017-03-23] MEDS: Heparin 5000 units/ml inj SUBQ SCH ×2 (09:16→20:14)
[2017-03-23 09:34] LABS: BASOPHILS % (AUTO) 0.7 % (0.0-2.0); EOSINOPHILS % (AUTO) 1.5 % (0.0-3.0); HEMATOCRIT 38.1 % (37.0-47.0); HEMOGLOBIN 12.6 G/DL (12.0-16.0); LYMPHOCYTES % (AUTO) 15.9 % (20.0-45.0); MEAN CORPUSCULAR VOLUME 87 FL (80-99); MONOCYTES % (AUTO) 13.4 % (1.0-10.0); NEUTROPHILS % (AUTO) 68.6 % (45.0-75.0); PLATELET COUNT 210 K/UL (150-450); RED CELL DISTRIBUTION WIDTH 12.4 % (11.6-14.8); WHITE BLOOD COUNT 5.6 K/UL (4.8-10.8)
[2017-03-23 09:49] LABS: INR 0.9 (0.9-1.1)
[2017-03-23 10:16] LABS: CHOLESTEROL 179 MG/DL (< 200); HDL CHOLESTEROL 69 MG/DL (40-60); TRIGLYCERIDES 192 MG/DL (30-150)
[2017-03-23 12:00] VITALS: BP 127/62
--- NOTE | 2017-03-23 12:30 | History and Physical ---
History of Present Illness General Date patient seen: Mar 23, 2017 Reason for Hospitalization: General Complaint Present Illness HPI 66-year-old female presents to ED for evaluation of short of breath with cough for the last several weeks. Patient has a temp of 102.8 in triage. States cough is productive with yellowish phlegm. Complaining of pain due to coughing. Denies nausea or vomiting. Denies any weakness. States that she had a blood clot in her lung and was treated here last year. She was positive for influenza A and admitted for further work up. Allergies: Coded Allergies: No Known Allergies (Unverified , 07/16/12) Medication History Scheduled Albuterol Sulfate (Ventolin Hfa), 1 PUFF INH EVERY 6 HOURS, (Reported) Atorvastatin Calcium* (Lipitor*), 10 MG ORAL BEDTIME, (Reported) Azithromycin* (Zithromax*), 250 MG ORAL DAILY, (Reported) Calcium Carbonate (Oyster Shell Calcium), 500 MG PO DAILY, (Reported) Clopidogrel* (Clopidogrel*), 75 MG ORAL DAILY, (Reported) Meloxicam* (Mobic*), 15 MG ORAL DAILY, (Reported) Omeprazole (Omeprazole), 20 MG ORAL DAILY, (Reported) Pyridoxine Hcl* (Vitamin B-6*), 50 MG ORAL DAILY, (Reported) Sertraline Hcl* (Zoloft*), 50 MG ORAL DAILY, (Reported) Tramadol Hcl* (Ultram*), 50 MG ORAL Q6H, (Reported) Miscellaneous Medications Phenylephrine HCl/Prometh HCl (Promethazine Vc Syrup), 473 ML PO, (Reported) Discontinued Medications Atorvastatin (Lipitor), 20 MG ORAL DAILY, (Reported) Discontinued Reason: Medication dose changed Atorvastatin Calcium* (Lipitor*), 20 MG ORAL BEDTIME, (Reported) Discontinued Reason: Medication dose changed Ranitidine Hcl* (Zantac*), 150 MG ORAL DAILY, (Reported) Discontinued Reason: Therapy completed Patient History Healthcare decision maker Resuscitation status Full Code Advanced Directive on File Past Medical/Surgical History Past Medical/Surgical History: (1) Anxiety attack Review of Systems Constitutional: Reports: fever Eye: Reports: no symptoms All Other Systems: negative except mentioned in HPI Physical Exam General Appearance: WD/WN, no apparent distress Lines, tubes and drains: peripheral HEENT: normocephalic, atraumatic Neck: non-tender, normal alignment Respiratory/Chest: chest wall non-tender, lungs clear Breasts: no masses Cardiovascular/Chest: normal rate Abdomen: normal bowel sounds, no organomegaly Genitourinary/Rectal: normal genital exam Extremities: normal range of motion Last 24 Hour Vital Signs Date Time Temp Pulse Resp B/P (MAP) Pulse Ox O2 Delivery O2 Flow Rate FiO2 03/23/17 08:11 72 16 Room Air 21 03/23/17 08:00 79 03/23/17 08:00 99.3 78 18 132/66 95 Room Air 03/23/17 04:00 98.8 74 18 119/92 97 Room Air 03/23/17 04:00 86 03/23/17 02:01 98.9 03/23/17 00:00 76 22 124/63 97 Room Air 03/22/17 21:25 80 22 112/55 95 Room Air 03/22/17 21:15 80 22 112/55 95 Room Air 03/22/17 19:55 100.1 95 18 117/53 95 Room Air 03/22/17 18:11 101.3 89 14 135/55 Room Air 03/22/17 18:00 101.3 03/22/17 16:51 103.1 98 14 120/102 95 Room Air 03/22/17 16:33 102.7 112 22 131/79 94 Room Air Laboratory Tests Test 03/22/17 17:18 03/22/17 19:58 03/23/17 09:00 White Blood Count 8.1 K/UL (4.8-10.8) 5.6 K/UL (4.8-10.8) Red Blood Count 4.78 M/UL (4.20-5.40) 4.40 M/UL (4.20-5.40) Hemoglobin 13.4 G/DL (12.0-16.0) 12.6 G/DL (12.0-16.0) Hematocrit 40.5 % (37.0-47.0) 38.1 % (37.0-47.0) Mean Corpuscular Volume 85 FL (80-99) 87 FL (80-99) Mean Corpuscular Hemoglobin 28.0 PG (27.0-31.0) 28.6 PG (27.0-31.0) Mean Corpuscular Hemoglobin Concent 33.1 G/DL (32.0-36.0) 33.0 G/DL (32.0-36.0) Red Cell Distribution Width 12.2 % (11.6-14.8) 12.4 % (11.6-14.8) Platelet Count 227 K/UL (150-450) 210 K/UL (150-450) Mean Platelet Volume 7.1 FL (6.5-10.1) 7.4 FL (6.5-10.1) Neutrophils (%) (Auto) 74.9 % (45.0-75.0) 68.6 % (45.0-75.0) Lymphocytes (%) (Auto) 12.3 % (20.0-45.0) L 15.9 % (20.0-45.0) L Monocytes (%) (Auto) 11.4 % (1.0-10.0) H 13.4 % (1.0-10.0) H Eosinophils (%) (Auto) 0.8 % (0.0-3.0) 1.5 % (0.0-3.0) Basophils (%) (Auto) 0.7 % (0.0-2.0) 0.7 % (0.0-2.0) Sodium Level 140 MMOL/L (136-145) Potassium Level 3.8 MMOL/L (3.5-5.1) Chloride Level 103 MMOL/L (98-107) Carbon Dioxide Level 27 MMOL/L (21-32) Anion Gap 10 mmol/L (5-15) Blood Urea Nitrogen 14 mg/dL (7-18) Creatinine 1.1 MG/DL (0.55-1.30) Estimat Glomerular Filtration Rate 50.0 mL/min (>60) Glucose Level 121 MG/DL (74-106) H Lactic Acid Level 1.50 mmol/L (0.66-2.22) Calcium Level 8.9 MG/DL (8.5-10.1) Total Bilirubin 0.3 MG/DL (0.2-1.0) Aspartate Amino Transf (AST/SGOT) 8 U/L (15-37) L Alanine Aminotransferase (ALT/SGPT) 17 U/L (12-78) Alkaline Phosphatase 71 U/L (46-116) Total Creatine Kinase 130 U/L (26-308) Creatine Kinase MB 0.5 NG/ML (0.0-3.6) Creatine Kinase MB Relative Index 0.3 Troponin I 0.071 ng/mL (0.000-0.056) 0.066 ng/mL (0.000-0.056) Pro-B-Type Natriuretic Peptide 71 pg/mL (0-125) Total Protein 7.4 G/DL (6.4-8.2) Albumin 3.6 G/DL (3.4-5.0) Globulin 3.8 g/dL Albumin/Globulin Ratio 0.9 (1.0-2.7) L Urine Color Pale yellow Urine Appearance Clear Urine pH 6 (4.5-8.0) Urine Specific [place] 1.010 (1.005-1.035) Urine Protein Negative (NEGATIVE) Urine Glucose (UA) Negative (NEGATIVE) Urine Ketones Negative (NEGATIVE) Urine Occult Blood Negative (NEGATIVE) Urine Nitrite Negative (NEGATIVE) Urine Bilirubin Negative (NEGATIVE) Urine Urobilinogen Normal MG/DL (0.0-1.0) Urine Leukocyte Esterase Negative (NEGATIVE) Prothrombin Time 9.9 SEC (9.30-11.50) Prothromb Time International Ratio 0.9 (0.9-1.1) Activated Partial Thromboplast Time 28 SEC (23-33) C-Reactive Protein, Quantitative 3.7 mg/dL (0.00-0.90) H Triglycerides Level 192 MG/DL (30-150) H Cholesterol Level 179 MG/DL (< 200) LDL Cholesterol 94 mg/dL (<100) HDL Cholesterol 69 MG/DL (40-60) H Cholesterol/HDL Ratio 2.6 (3.3-4.4) L Thyroid Stimulating Hormone (TSH) 0.786 uiU/mL (0.358-3.740) Microbiology Date/Time Source Procedure Growth Status 03/22/17 17:10 Nasal Nares Influenza Types A,B Antigen (JOHN) - Final Complete Height (Feet): 4 Height (Inches): 11.00 Weight (Pounds): 178 Medications Current Medications Medications (Trade) Dose Ordered Sig/Nadia Route PRN Reason Start Time Stop Time Status Last Admin Dose Admin Acetaminophen (Tylenol) 650 mg Q4H PRN ORAL FEVER 03/22/17 20:45 04/21/17 20:44 03/23/17 01:02 Albuterol/ Ipratropium (Albuterol/ Ipratropium) 3 ml Q4H PRN HHN Shortness of Breath 03/22/17 20:45 03/27/17 20:44 Aspirin (ASA) 162 mg DAILY ORAL 03/23/17 09:00 04/22/17 08:59 03/23/17 09:16 Clopidogrel Bisulfate (Plavix) 75 mg DAILY ORAL 03/23/17 09:00 04/22/17 08:59 03/23/17 09:16 Diltiazem HCl (Cardizem) 10 mg Q1H PRN IV HR > 120 03/22/17 20:45 04/21/17 20:44 Enalaprilat (Vasotec) 2.5 mg Q6H PRN IV sbp more than 160 03/22/17 20:45 04/21/17 20:44 Heparin Sodium (Porcine) (Heparin 5000 units/ml) 5,000 units EVERY 12 HOURS SUBQ 03/22/17 22:00 04/21/17 21:59 03/23/17 09:16 Morphine Sulfate (Morphine Sulfate) 2 mg Q4H PRN IVP severe Pain (Pain Scale 7-10) 03/22/17 20:45 03/29/17 20:44 Nitroglycerin (Ntg) 0.4 mg Every 5 Minutes PRN SL Prn Chest Pain 03/22/17 20:45 04/21/17 20:44 Ondansetron HCl (Zofran) 4 mg Q6H PRN IVP Nausea & Vomiting 03/22/17 20:45 04/21/17 20:44 Polyethylene Glycol (Miralax) 17 gm DAILYPRN PRN ORAL Constipation 03/22/17 20:45 04/21/17 20:44 Promethazine HCl/ Codeine (Phenergan with Codeine) 5 ml Q6H PRN ORAL For Cough 03/23/17 09:15 04/22/17 09:14 03/23/17 09:16 Pyridoxine HCl (Vitamin B6) 50 mg DAILY ORAL 03/23/17 09:00 04/22/17 08:59 03/23/17 09:16 Sertraline HCl (Zoloft) 50 mg DAILY ORAL 03/23/17 09:00 04/22/17 08:59 03/23/17 09:16 Temazepam (Restoril) 15 mg HSPRN PRN ORAL Insomnia 03/22/17 20:45 03/29/17 20:44 Assessment/Plan Problem List: (1) Fever ICD Codes: R50.9 - Fever, unspecified SNOMED: 059761593 (2) Influenza A ICD Codes: J10.1 - Influenza due to other identified influenza virus with other respiratory manifestations SNOMED: 125938856 Assessment/Plan symptomatic treatment iv antibiotics check sputum ID evaluation. GISSELL RODRIGUES Mar 23, 2017 12:30
--- NOTE | 2017-03-23 12:49 | Consultation ---
Consult Note Consult Note ID DIC # [id number] ENRICO OROZCO M.D. Mar 23, 2017 12:49
[2017-03-23] MEDS ORDERED: Azithromycin 500 MG in D5W 275 ML IV SCH (14:00)
[2017-03-23] MEDS ORDERED: Oseltamivir 75mg cap ORAL SCH (14:30)
--- NOTE | 2017-03-23 15:22 | Cardiology Report ---
APPROVED REPORT EXAM: Two-dimensional and M-mode echocardiogram with Doppler and color Doppler. INDICATION LV function M-Mode DIMENSIONS IVSd0.9 (0.7-1.1cm)Left Atrium (MM)2.8 (1.6-4.0cm) LVDd5.5 (3.5-5.6cm)Aortic Root3.5 (2.0-3.7cm) PWd1.2 (0.7-1.1cm)Aortic Cusp Exc.1.7 (1.5-2.0cm) IVSs1.9 cm LVDs3.5 (2.5-4.0cm) PWs1.7 cm Normal left ventricular chamber size, systolic function and wall motion. Left ventricular ejection fraction estimated to be 65-70 %. No evidence of left ventricular hypertrophy No evidence of pericardial effusion All other chamber size is within normal limits . Focal aortic valve sclerosis with adequate cusp excursion. Thickened mitral valve leaflets with normal excursion. Mitral annulus and aortic root calcification. Pulmonic valve not well visualized. Normal tricuspid valve structure. IVC at normal size with physiologic collapse. A color flow and spectral Doppler study was performed and revealed: No aortic regurgitation. Trace mitral regurgitation. Mitral inflow indicates normal left ventricular diastolic function. / Mitral inflow Mitral diastolic velocities suggest reduced left ventricular relaxation c/w mild LV diastolic dysfunction (Grade I ). Mild tricuspid regurgitation. Tricuspid systolic velocities suggests peak right ventricular systolic pressure of 33, consistent with mild pulmonary hypertension. No Pulmonic regurgitation present.
[2017-03-23 16:00] VITALS: BP 140/57
[2017-03-23] MEDS ORDERED: dilTIAZem HCl 25mg/5ml Inj IV PRN (18:45)
[2017-03-23] MEDS ORDERED: Miralax 17gm pkt ORAL PRN (19:45)
[2017-03-23] MEDS ORDERED: Enalaprilat 2.5mg/2ml Inj IV PRN (19:45)
[2017-03-23] MEDS ORDERED: Morphine Sulfate 2mg/ml Inj IVP PRN (19:45)
[2017-03-23] MEDS ORDERED: Nitroglycerin Subl 0.4mg tab SL PRN (19:45)
[2017-03-23] MEDS ORDERED: Albuterol/Ipratropium 3ml neb HHN PRN (19:45)
[2017-03-23 20:00] VITALS: BP 133/56
--- NOTE | 2017-03-23 21:30 | Consultation ---
DATE OF CONSULTATION: 03/23/2017 INFECTIOUS DISEASES CONSULTATION CONSULTING PHYSICIAN: Demetris Meng M.D. REFERRING PHYSICIAN: Dakota Townsend M.D. REASON FOR CONSULTATION: Evaluation of the patient for fever, influenza, antibiotic management. HISTORY OF PRESENT ILLNESS: The patient is a 66-year-old female with past medical significant for hyperlipidemia who has been admitted to this medical center for cough x3 weeks. The patient has white sputum production. The patient's rapid influenza A has been positive. An Infectious Diseases consultation has been requested for further evaluation of the patient and antibiotic management. PAST MEDICAL HISTORY: 1. Hyperlipidemia. 2. History of osteoarthritis. 3. Depression/anxiety. MEDICATIONS: The patient received one dose of Tamiflu . ALLERGIES: No known drug allergies. SOCIAL HISTORY: Negative for alcohol, drug abuse, or smoking. FAMILY HISTORY: Noncontributory. REVIEW OF SYSTEMS: HEENT: No recent change in vision or hearing. PULMONARY: Productive cough. CARDIOVASCULAR: The patient is complaining of constant chest pain that is worsened with deep inspiration and cough. GASTROINTESTINAL/ABDOMEN: No nausea or vomiting. GENITOURINARY: No dysuria. MUSCULOSKELETAL: The patient has generalized body aches. NEUROLOGIC: No seizure. PHYSICAL EXAMINATION: VITAL SIGNS: Temperature 99.3 degrees, blood pressure 132/68, pulse 68, T-max 103 degrees. HEENT: No pale conjunctivae. No icterus. NECK: No lymphadenopathy. CHEST: Clear. HEART: S1 and S2. ABDOMEN: Soft and nontender. EXTREMITIES: No cyanosis at this time. NEUROLOGIC: Awake. LABORATORY AND DIAGNOSTIC DATA: BUN 14 and creatinine 1.1. ALT, AST, and alkaline phosphatase unremarkable. CRP 3.7. Rapid influenza test positive for influenza A. Chest x-ray, no acute process. ASSESSMENT: The patient is a 66-year-old female with: 1. Fever, improving. 2. Influenza A. 3. bacterial bronchitis. 4. Hyperlipidemia. PLAN: 1. We will continue the patient on Tamiflu for a total of five days, start Zithromax for a total of five days. 2. Monitor CBC. 3. Monitor BMP. 4. Monitor chest x-ray. Based on the patient's clinical course and laboratories, we will do further recommendations. Thank you, Dr. Townsend, for allowing me to participate in the care of this patient. I will follow the patient with you during this hospitalization. Demetris Meng M.D. DR: KARINE JOB#: [id number] CC:
[2017-03-24] VITALS: BP 124/72
[2017-03-24 04:00] VITALS: BP 127/78
[2017-03-24 08:00] VITALS: BP 108/57
[2017-03-24] MEDS: Heparin 5000 units/ml inj SUBQ SCH (08:32)
[2017-03-24] MEDS ORDERED: Aspirin Baby 81mg ORAL SCH (09:00)
[2017-03-24] MEDS ORDERED: Sertraline 50mg tab ORAL SCH (09:00)
[2017-03-24] MEDS ORDERED: Oseltamivir 75mg cap ORAL SCH (09:00)
[2017-03-24] MEDS ORDERED: Pyridoxine 50mg tab ORAL SCH (09:00)
[2017-03-24 12:00] VITALS: BP 125/60
[2017-03-24] MEDS ORDERED: Azithromycin 500 MG in D5W 275 ML IV SCH (14:00)
[2017-03-24] MEDS ORDERED: TAMIFLU75 MG ORAL (14:26)
--- NOTE | 2017-03-24 14:29 | Pulmonology Progress Note ---
Assessment/Plan Problems: (1) Fever (2) Influenza A Assessment/Plan improving dc home with oral abx Subjective ROS Limited/Unobtainable: No Interval Events: feeling better Constitutional: Reports: no symptoms HEENT: Repors: no symptoms Respiratory: Reports: no symptoms Allergies: Coded Allergies: No Known Allergies (Unverified , 07/16/12) Objective Last 24 Hour Vital Signs Date Time Temp Pulse Resp B/P (MAP) Pulse Ox O2 Delivery O2 Flow Rate FiO2 03/24/17 12:00 98.6 64 20 125/60 03/24/17 08:00 98.2 61 18 108/57 96 03/24/17 04:01 Room Air 03/24/17 04:00 98.2 71 19 127/78 97 Room Air 03/24/17 00:01 Room Air 03/24/17 00:00 98.6 61 20 124/72 98 03/23/17 20:05 69 18 Room Air 21 03/23/17 20:01 Room Air 03/23/17 20:00 97.0 73 20 133/56 95 03/23/17 16:00 98.6 68 20 140/57 94 Intake and Output 03/23/17 03/24/17 19:00 07:00 Intake Total 480 ml Balance 480 ml Intake Oral 480 ml # Voids 3 1 Objective General Appearance: WD/WN, no apparent distress Lines, tubes and drains: peripheral HEENT: normocephalic, atraumatic Neck: non-tender, normal alignment Respiratory/Chest: chest wall non-tender, lungs clear Breasts: no masses Cardiovascular/Chest: normal rate Abdomen: normal bowel sounds, no organomegaly Genitourinary/Rectal: normal genital exam Extremities: normal range of motion Microbiology Date/Time Source Procedure Growth Status 03/22/17 17:10 Nasal Nares Influenza Types A,B Antigen (JOHN) - Final Complete Laboratory Tests 03/24/17 05:30: Troponin I 0.057H Current Medications Medications (Trade) Dose Ordered Sig/Nadia Route PRN Reason Start Time Stop Time Status Last Admin Dose Admin Acetaminophen (Tylenol) 650 mg Q4H PRN ORAL FEVER 03/23/17 19:30 04/21/17 19:29 Albuterol/ Ipratropium (Albuterol/ Ipratropium) 3 ml Q4H PRN HHN Shortness of Breath 03/23/17 19:45 03/27/17 19:44 Aspirin (ASA) 162 mg DAILY ORAL 03/24/17 09:00 04/22/17 08:59 03/24/17 08:31 Azithromycin 500 mg/Dextrose 275 ml @ 275 mls/hr Q24HRS IV 03/24/17 14:00 03/29/17 14:01 03/24/17 13:35 Clopidogrel Bisulfate (Plavix) 75 mg DAILY ORAL 03/24/17 09:00 04/22/17 08:59 03/24/17 08:31 Enalaprilat (Vasotec) 2.5 mg Q6H PRN IV sbp more than 160 03/23/17 19:45 04/21/17 19:44 Heparin Sodium (Porcine) (Heparin 5000 units/ml) 5,000 units EVERY 12 HOURS SUBQ 03/23/17 21:00 04/21/17 21:59 03/24/17 08:32 Morphine Sulfate (Morphine Sulfate) 2 mg Q4H PRN IVP severe Pain (Pain Scale 7-10) 03/23/17 19:45 03/29/17 19:44 Nitroglycerin (Ntg) 0.4 mg Every 5 Minutes PRN SL Prn Chest Pain 03/23/17 19:45 04/21/17 19:44 Ondansetron HCl (Zofran) 4 mg Q6H PRN IVP Nausea & Vomiting 03/23/17 19:45 04/21/17 19:44 03/24/17 13:51 Oseltamivir Phosphate (Tamiflu) 75 mg TWICE A DAY ORAL 03/24/17 09:00 03/28/17 14:29 03/24/17 08:31 Polyethylene Glycol (Miralax) 17 gm DAILYPRN PRN ORAL Constipation 03/23/17 19:45 04/21/17 19:44 Promethazine HCl/ Codeine (Phenergan with Codeine) 5 ml Q6H PRN ORAL For Cough 03/23/17 19:45 04/22/17 19:44 03/24/17 08:56 Pyridoxine HCl (Vitamin B6) 50 mg DAILY ORAL 03/24/17 09:00 04/22/17 08:59 03/24/17 08:31 Sertraline HCl (Zoloft) 50 mg DAILY ORAL 03/24/17 09:00 04/22/17 08:59 03/24/17 08:31 Temazepam (Restoril) 15 mg HSPRN PRN ORAL Insomnia 03/23/17 19:45 03/29/17 19:44 GISSELL RODRIGUES Mar 24, 2017 14:29
[2017-03-24] MEDS ORDERED: AZITHROMYCIN250 MG ORAL (15:24)
[2017-03-24] MEDS ORDERED: NS 500ML ONE (16:16)
[2017-03-24] MEDS ORDERED: Tubing IV Secondary IV ONE (16:16)
--- NOTE | 2017-03-25 10:27 | Discharge Summary ---
Discharge Summary Hospital Course Date of Admission Mar 22, 2017 at 18:48 Date of Discharge Mar 24, 2017 at 16:17 Admitting Diagnosis SHORTNESS OF BREATH, INFLUENZA HPI Clarissa Nair is a 66 year old female who was admitted on Mar 22, 2017 at 18:48 for Shortness Of Breath, Influenza Hospital Course [id number] Discharge Discharge Disposition Patient was discharged to Home (01) Discharge Diagnoses: Lexis Adhikari NP Mar 25, 2017 10:27
--- NOTE | 2017-03-25 22:30 | Discharge Summary 2 SIG ---
DATE OF ADMISSION: 03/22/2017 DATE OF DISCHARGE: 03/24/2017 ALTERNATIVE MEDICINE PRACTITIONER: Demetris Meng M.D. BRIEF HOSPITAL COURSE: The patient is a 66-year-old female, who presented to ED complaining of shortness of breath with cough for the last several weeks. She has past medical history significant for hypercholesterolemia, depression and prior pulmonary embolism per patient. She was seen at ED and temperature was noted to be 102.8 degrees in triage. She stated cough was productive with yellowish phlegm and complaining of pain due to coughing. Blood work showed no leukocytosis. Hemoglobin and hematocrit was stable. Troponin was 0.071. Chest x-ray done showed no acute infiltrates rapid influenza screen was positive for influenza A. She was started on Tamiflu and aspirin was given. On review of medical chart, the patient had a CTA done in 05/2016 with a questionable PE, however, ventilation/perfusion scan confirmed no PE. She was admitted to telemetry for influenza A. She was followed by Dr. Demetris Meng. Zithromax was added to the patient's medication. She was saturating well on room air. Echocardiogram done showed ejection fraction of 65% to 70% with mild pulmonary hypertension. RVSP of 33. No aortic regurgitation. She was eventually discharged home to continue antibiotics. FINAL DIAGNOSES: 1. Influenza A infection. 2. Fever. 3. Hyperlipidemia. 4. Possible bacterial bronchitis. DISPOSITION: The patient was discharged home. DISCHARGE MEDICATIONS: Continue with Tamiflu 75 mg and Zithromax 250 mg daily for four more days. DISCHARGE INSTRUCTIONS: Follow up with PMD in a week. Dakota Townsend M.D. I have been assigned to dictate discharge summary on this account and I was not involved in the patient's management. Lexis Adhikari N.P. DR: CHARO JOB#: [id number] CC: [facility]
--- NOTE | 2017-03-30 18:35 | Cardiology Report ---
APPROVED REPORT EKG Measurement Heart [id number] Normal sinus rhythm Nonspecific T wave abnormality Abnormal ECG
== END 2017-03-24 16:17 | disposition home or self-care (01) | DRG 113 ==
LOC: EMR 17:40 → 2E 18:48 → EDBEDREQ 20:55 → 4E 03-23 18:19
DX: J10.1 Influenza due to other identified influenza virus with other respiratory manifestations (principal); E78.5 Hyperlipidemia, unspecified; J40 Bronchitis, not specified as acute or chronic; M19.90 Unspecified osteoarthritis, unspecified site; F41.8 Other specified anxiety disorders
CPT/HCPCS: 36415; 71045; 80053; 80061; 81003; 82550; 82553; 83605; 83880; 84443; 84484; 85025; 85610; 85730; 86140; 86710; 93005; 93306; 94664; 99285; J2405; J7620

== ENCOUNTER 2017-11-13 16:41 | Emergency (ER) | payer MEDICARE, MEDICAID ==
[~2017-11-13] VITALS: Ht 154.9 cm; Wt 81.2 kg
[~2017-11-13 16:41] MED LIST changes: +AZITHROMYCIN250 MG ORAL; +CLOPIDOGREL75 MG ORAL; +MOBIC15 MG ORAL; +OMEPRAZOLE20 M2 ORAL; +PROMETHAZINE V473 ML PO; +PYRIDOXINE HCL50 MG ORAL; +SERTRALINE HCL50 MG ORAL; +TAMIFLU75 MG ORAL; +VENTOLIN HFA18 GM INH
[2017-11-13 16:54] VITALS: BP 157/70
[2017-11-13] MEDS ORDERED: Norco 5mg/325mg tab ORAL ONE (17:15)
[2017-11-13 17:42] LABS: APPEARANCE,URINE CLEAR; BILIRUBIN, URINE NEGATIVE (NEGATIVE); COLOR,URINE PALE YELLOW; GLUCOSE, URINE (UA) NEGATIVE (NEGATIVE); KETONES,URINE NEGATIVE (NEGATIVE); LEUKOCYTE ESTERASE ,URINE 3+ (NEGATIVE); NITRITE,URINE NEGATIVE (NEGATIVE); PH,URINE 6.5 (4.5-8.0); PROTEIN,URINE NEGATIVE (NEGATIVE); UROBILINOGEN,URINE NORMAL MG/DL (0.0-1.0)
[2017-11-13] MEDS ORDERED: CEPHALEXIN500 MG ORAL (18:39)
[2017-11-13] MEDS ORDERED: NORCO 5-325 TA1 EACH ORAL (18:39)
[2017-11-13] MEDS ORDERED: COLACE100 MG ORAL (18:39)
[2017-11-13 18:47] VITALS: BP 152/80
--- NOTE | 2017-11-13 22:28 | Emergency Room Report ---
History of Present Illness General Chief Complaint: Back Pain-No Injury Source: Medical Record Present Illness HPI Patient is a 67-year-old female who presented after increased low back pain. Patient had prior history of previous episodes of back pain. She had previously been anticoagulated after deep venous thrombosis. The patient reports having pain which radiated to her leg. She was having increased difficulty with ambulation but had been able to ambulate. She denies any fever. She reports having some the pain to the low back.The patient been anticoagulated after recent blood clot. Allergies: Coded Allergies: No Known Allergies (Unverified , 07/16/12) Patient History Past Medical History: see triage record Last Menstrual Period: unk Reviewed Nursing Documentation: PMH: Agreed; PSxH: Agreed Nursing Documentation-PMH Hx Cardiac Problems: Yes - high cholesterol Hx Asthma: Yes - Pulmonary Embolism Hx Diabetes: No Hx Cancer: No Hx Neurological Problems: Yes - anx depression Hx Headaches: Yes Hx Fatigue: Yes - past week Review of Systems All Other Systems: negative except mentioned in HPI Physical Exam Vital Signs Date Time Temp Pulse Resp B/P (MAP) Pulse Ox O2 Delivery O2 Flow Rate FiO2 11/13/17 16:44 98.3 71 16 157/70 95 Room Air 98.2 General Appearance: well appearing, no apparent distress, alert, GCS 15, non- toxic Head: normocephalic, atraumatic ENT: hearing grossly normal, normal voice Neck: full range of motion, supple Respiratory: no respiratory distress, speaking full sentences Gastrointestinal: normal inspection, normal bowel sounds Musculoskeletal: decreased range of mation, other - no cva tenderness, no midline tenderness Neurologic: normal inspection, alert, oriented x3, responsive, normal gait Psychiatric: mood/affect normal Skin: no rash Medical Decision Making Diagnostic Impression: Primary Impression: Urinary tract infection Additional Impression: Back pain ER Course Patient presented for back pain. Differential diagnosis included but was not limited to herniated disc, cauda equina syndrome, abdominal aortic aneurysm, perforated ulcer, spinal epidural abscess, spinal stenosis, lumbar fracture, metastatic lesion, pyelonephritis. Because of complexity of patient's case laboratory testing and imaging studies were ordered. Patient was given [place] for pain. She was noted to have evidence of urinary infection on laboratory testing. Patient was given prescription for Keflex as well as the pain medications. She is advised that she may need MRI if the symptoms persisted. The patient is advised to return if began having increased weakness or bowel or bladder dysfunction or fever. Patient is advised to followup with her primary care physician in the next one to 2 days for reexamination. Labs Test 11/13/17 17:25 Urine Color Pale yellow Urine Appearance Clear Urine pH 6.5 (4.5-8.0) Urine Specific [place] 1.015 (1.005-1.035) Urine Protein Negative (NEGATIVE) Urine Glucose (UA) Negative (NEGATIVE) Urine Ketones Negative (NEGATIVE) Urine Blood Negative (NEGATIVE) Urine Nitrite Negative (NEGATIVE) Urine Bilirubin Negative (NEGATIVE) Urine Urobilinogen Normal MG/DL (0.0-1.0) Urine Leukocyte Esterase 3+ (NEGATIVE) Urine RBC 0 /HPF (0 - 2) Urine WBC 15-20 /HPF (0 - 2) Urine Squamous Epithelial Cells Moderate /LPF (NONE/OCC) Urine Amorphous Sediment Few /LPF (NONE) Urine Bacteria Few /HPF (NONE) Last Vital Signs Date Time Temp Pulse Resp B/P (MAP) Pulse Ox O2 Delivery O2 Flow Rate FiO2 11/13/17 18:47 98.5 77 17 152/80 100 Room Air 98.3 Status: improved Disposition: HOME, SELF-CARE Condition: Stable Scripts Docusate Sodium* (COLACE*) 100 Mg Capsule 100 MG ORAL TWICE A DAY, #20 CAP Prov: Raghavendra King MD 11/13/17 Cephalexin* (KEFLEX*) 500 Mg Capsule 500 MG ORAL EVERY 6 HOURS, #20 CAP Prov: Raghavendra King MD 11/13/17 Hydrocodone Bit/Acetaminophen 5-325* (NORCO 5-325*) 1 Each Tablet 1 TAB ORAL Q6H PRN for For Pain, #20 TAB 0 Refills Prov: Raghavendra King MD 11/13/17 Patient Instructions: Sciatica, Urinary Tract Infection Raghavendra King MD Nov 13, 2017 22:28
--- NOTE | 2017-11-14 09:25 | Diagnostic Imaging Report ---
Indication: Back pain Technique: CT lumbar spine was performed utilizing automated exposure control without intravenous contrast material. Axial, sagittal and coronal images were generated. CT dose: Total DLP 647.96 mGycm; CTDI vol 22.44 mGy Comparison: None Findings: Bone mineralization appears within normal limits. There are 5 nonrib-bearing lumbar-type vertebral bodies, assuming 12 paired ribs. There is no evidence of acute fracture. Lumbar lordosis is maintained. There is multilevel degenerative change of the lumbar spine with some Modic type endplate changes involving the superior endplate of T12. There are also multilevel osteophytes and multilevel disc bulges, most pronounced at L4-5 and L5-S1. There is no significant bony central canal stenosis. Possible mild bilateral foraminal narrowing at L5-S1. Please note that the central canal, nerve roots and discs are better evaluated on MRI, which can be obtained for a more sensitive evaluation as clinically indicated. No paraspinal fluid collection. Abdominal aorta is normal in caliber. There is mild atherosclerotic disease. IMPRESSION: Multilevel degenerative change of the lumbar spine. No evidence of acute fracture or traumatic malalignment. Please note that the central canal, spinal cord/nerve roots and discs are better evaluated on MRI, which can be obtained for a more sensitive evaluation as clinically indicated. The CT scanner at [facility] is accredited by the [employer] and the scans are performed using protocols designed to limit radiation exposure to as low as reasonably achievable to attain images of sufficient resolution adequate for diagnostic evaluation.
== END 2017-11-13 18:47 | disposition home or self-care (01) ==
LOC: EMR 17:32
DX: N39.0 Urinary tract infection, site not specified (principal); E78.00 Pure hypercholesterolemia, unspecified
CPT/HCPCS: 72131; 81003; 87086; 99284

== ENCOUNTER 2018-10-29 08:36 | Inpatient (IN) | payer MEDICARE, MEDICAID ==
[~2018-10-29] VITALS: Ht 160 cm; Wt 81.6 kg
[2018-10-29] VITALS (7 sets, daily range): BP systolic 105–137; BP diastolic 47–74
[~2018-10-29 08:36] MED LIST changes: +CEPHALEXIN500 MG ORAL; +COLACE100 MG ORAL; +NORCO 5-325 TA1 EACH ORAL
[2018-10-29] MEDS ORDERED: ASPIRIN-LOW81 MG ORAL (08:52)
[2018-10-29] MEDS ORDERED: LANSOPRAZOLE30 MG ORAL (08:52)
--- NOTE | 2018-10-29 08:52 | Emergency Room Report ---
History of Present Illness General Chief Complaint: Dyspnea/Respdistress Source: Patient Present Illness HPI Patient is a 68-year-old female presents after increased left-sided chest discomfort. Patient reports having symptoms for several days. She states is worsened over the past 2 to 3 hours. She reports having increased facial pain as well as difficulty with swallowing. She denies any fever. She reports having taken lansoprazole as well as a cholesterol medication. Allergies: Coded Allergies: No Known Allergies (Unverified , 07/16/12) Patient History Past Medical History: see triage record Now: No Reviewed Nursing Documentation: PMH: Agreed; PSxH: Agreed Nursing Documentation-PMH Past Medical History: No History, Except For Hx Cardiac Problems: Yes - high cholesterol Hx Asthma: Yes - Pulmonary Embolism Hx Diabetes: No Hx Cancer: No Hx Neurological Problems: Yes - anx depression Hx Headaches: Yes Hx Fatigue: Yes - past week Review of Systems All Other Systems: negative except mentioned in HPI Physical Exam Vital Signs Date Time Temp Pulse Resp B/P (MAP) Pulse Ox O2 Delivery O2 Flow Rate FiO2 10/29/18 08:42 98.2 97 21 119/67 (84) 95 Room Air Sp02 EP Interpretation: reviewed, normal General Appearance: normal inspection, well appearing, no apparent distress, alert, GCS 15 Head: atraumatic ENT: normal ENT inspection, hearing grossly normal, normal voice Neck: normal inspection, full range of motion, supple, no bony tend Respiratory: normal inspection, lungs clear, normal breath sounds, no respiratory distress, no retraction, no wheezing Cardiovascular #1: regular rate, rhythm, no edema Gastrointestinal: normal inspection, normal bowel sounds, non tender, soft, no guarding, no hernia Genitourinary: no CVA tenderness Musculoskeletal: normal inspection, back normal, normal range of motion Neurologic: normal inspection, alert, oriented x3, responsive, bed bug exterminator III-XII nml as tested, speech normal Psychiatric: normal inspection, judgement/insight normal, mood/affect normal Medical Decision Making Diagnostic Impression: Primary Impression: Chest pain Additional Impressions: Diabetes ACS (acute coronary syndrome) ER Course Patient presented for shortness of breath and left sided chest pain. Differential diagnosis include was not limited to viral infection, anxiety, myocardial infarction, diabetic acidosis, dehydration among others. Because of complexity of patient's case laboratory testing and imaging studies were ordered.Medical Decision Making Differential diagnosis included but was not limited to acute coronary syndrome, pulmonary embolism, pneumothorax, pericarditis, aortic dissection, chest wall pain, shingles, pneumonia, esophageal perforation among others. EKG interpreted by me showed normal sinus rhythm without acute st or t wave changes. Patient was given aspirin as well as tylenol and IV Lasix. CXR read by radiology showed no acute findings. Patient was noted to have some atypical history for cardiac chest pain however has multiple risk factors. Repeat troponin was unchanged. Dr. Ortega was contacted for inpatient management due to panel physician. EKG Diagnostic Results Rate: normal Rhythm: NSR ST Segments: no acute changes Rhythm Strip Diag. Results EP Interpretation: yes Rhythm: NSR, no PVC's, no ectopy Last Vital Signs Date Time Temp Pulse Resp B/P (MAP) Pulse Ox O2 Delivery O2 Flow Rate FiO2 10/29/18 08:42 98.2 97 21 119/67 (84) 95 Room Air Status: improved Disposition: ADMITTED INPATIENT Condition: Stable Raghavendra King MD Oct 29, 2018 08:52
--- NOTE | 2018-10-29 09:46 | Diagnostic Imaging Report ---
EXAM: XR Chest, 1 View CLINICAL HISTORY: Shortness of breath TECHNIQUE: Frontal view of the chest. COMPARISON: No relevant prior studies available. FINDINGS: Lungs: Unremarkable. The lungs appear clear. No focal consolidation. Pleural space: Unremarkable. The costophrenic angles are sharp. No visible pneumothorax. Heart: Unremarkable. No cardiomegaly. Mediastinum: Unremarkable. Bones/joints: Unremarkable. Tubes, lines and devices: Telemetry leads overlie the thorax. IMPRESSION: No acute findings.
[2018-10-29 09:59] LABS: BASOPHILS % (AUTO) 0.6 % (0.0-2.0); EOSINOPHILS % (AUTO) 1.2 % (0.0-3.0); HEMATOCRIT 40.9 % (37.0-47.0); HEMOGLOBIN 13.4 G/DL (12.0-16.0); LYMPHOCYTES % (AUTO) 18.2 % (20.0-45.0); MEAN CORPUSCULAR VOLUME 86 FL (80-99); MONOCYTES % (AUTO) 5.4 % (1.0-10.0); NEUTROPHILS % (AUTO) 74.6 % (45.0-75.0); PLATELET COUNT 238 K/UL (150-450); RED BLOOD COUNT 4.74 M/UL (4.20-5.40); RED CELL DISTRIBUTION WIDTH 11.9 % (11.6-14.8); WHITE BLOOD COUNT 7.7 K/UL (4.8-10.8)
[2018-10-29 10:08] LABS: ANION GAP 12 mmol/L (5-15); BLOOD UREA NITROGEN 15 mg/dL (7-18); CALCIUM 8.9 MG/DL (8.5-10.1); CARBON DIOXIDE 22 MMOL/L (21-32); CHLORIDE 111 MMOL/L (98-107); CREATININE 0.8 MG/DL (0.55-1.30); POTASSIUM 4.5 MMOL/L (3.5-5.1); SODIUM 145 MMOL/L (136-145)
[2018-10-29 10:22] LABS: ALANINE AMINOTRANSFERASE 20 U/L (12-78); ALBUMIN 3.5 G/DL (3.4-5.0); ALBUMIN/GLOBULIN RATIO 0.9 (1.0-2.7); ALKALINE PHOSPHATASE 63 U/L (46-116); ASPARTATE AMINO TRANSFERASE 17 U/L (15-37); BILIRUBIN,TOTAL 0.5 MG/DL (0.2-1.0); CKMB 1.7 NG/ML (0.0-3.6); CREATINE KINASE 167 U/L (26-308)
[2018-10-29] MEDS ORDERED: Acetaminophen 500mg (ES) tab ORAL ONE (10:30)
[2018-10-29] MEDS ORDERED: Aspirin Baby 81mg ORAL ONE (11:00)
[2018-10-29] MEDS ORDERED: Nitroglycerin Subl 0.4mg tab SL PRN (14:15)
[2018-10-29] MEDS ORDERED: Morphine Sulfate 2mg/ml Inj(IV/IM USE ONLY) IVP PRN (14:15)
[2018-10-29] MEDS ORDERED: HYDROcodone/Acetamin 5/325 tab ORAL PRN (14:15)
--- NOTE | 2018-10-29 20:24 | Cardiology Progress Note ---
Assessment/Plan Assessment/Plan The patient is seen and examined, full consult note will be dictated shortly. Objective Last 24 Hour Vital Signs Date Time Temp Pulse Resp B/P (MAP) Pulse Ox O2 Delivery O2 Flow Rate FiO2 10/29/18 16:00 98.2 68 18 113/71 (85) 96 10/29/18 16:00 62 10/29/18 13:32 Room Air 10/29/18 13:25 97.0 65 18 110/74 (86) 98 10/29/18 13:19 62 10/29/18 12:56 98.3 60 19 120/47 99 Room Air 10/29/18 12:00 98.3 60 19 120/47 99 Room Air 10/29/18 11:00 98.0 67 17 111/57 99 Room Air 10/29/18 10:00 71 19 105/58 99 Room Air 10/29/18 08:50 73 16 Room Air 10/29/18 08:50 73 18 110/55 100 Room Air 10/29/18 08:42 98.2 97 21 119/67 (84) 95 Room Air Laboratory Tests Test 10/29/18 09:15 10/29/18 09:53 Sodium Level 145 MMOL/L (136-145) Potassium Level 4.5 MMOL/L (3.5-5.1) Chloride Level 111 MMOL/L (98-107) H Carbon Dioxide Level 22 MMOL/L (21-32) Anion Gap 12 mmol/L (5-15) Blood Urea Nitrogen 15 mg/dL (7-18) Creatinine 0.8 MG/DL (0.55-1.30) Estimat Glomerular Filtration Rate > 60 mL/min (>60) Glucose Level 192 MG/DL (74-106) H Calcium Level 8.9 MG/DL (8.5-10.1) Total Bilirubin 0.5 MG/DL (0.2-1.0) Aspartate Amino Transf (AST/SGOT) 17 U/L (15-37) Alanine Aminotransferase (ALT/SGPT) 20 U/L (12-78) Alkaline Phosphatase 63 U/L (46-116) Total Creatine Kinase 167 U/L (26-308) Creatine Kinase MB 1.7 NG/ML (0.0-3.6) Creatine Kinase MB Relative Index 1.0 Troponin I 0.076 ng/mL (0.000-0.056) 0.083 ng/mL (0.000-0.056) Pro-B-Type Natriuretic Peptide 668 pg/mL (0-125) H Total Protein 7.2 G/DL (6.4-8.2) Albumin 3.5 G/DL (3.4-5.0) Globulin 3.7 g/dL Albumin/Globulin Ratio 0.9 (1.0-2.7) L Lipase 104 U/L (73-393) Thyroid Stimulating Hormone (TSH) 1.213 uiU/mL (0.358-3.740) White Blood Count 7.7 K/UL (4.8-10.8) Red Blood Count 4.74 M/UL (4.20-5.40) Hemoglobin 13.4 G/DL (12.0-16.0) Hematocrit 40.9 % (37.0-47.0) Mean Corpuscular Volume 86 FL (80-99) Mean Corpuscular Hemoglobin 28.3 PG (27.0-31.0) Mean Corpuscular Hemoglobin Concent 32.9 G/DL (32.0-36.0) Red Cell Distribution Width 11.9 % (11.6-14.8) Platelet Count 238 K/UL (150-450) Mean Platelet Volume 7.0 FL (6.5-10.1) Neutrophils (%) (Auto) 74.6 % (45.0-75.0) Lymphocytes (%) (Auto) 18.2 % (20.0-45.0) L Monocytes (%) (Auto) 5.4 % (1.0-10.0) Eosinophils (%) (Auto) 1.2 % (0.0-3.0) Basophils (%) (Auto) 0.6 % (0.0-2.0) Randolph Laboy MD Oct 29, 2018 20:24
--- NOTE | 2018-10-29 22:15 | Consultation ---
DATE OF CONSULTATION: 10/29/2018 CARDIOLOGY CONSULTATION CONSULTING PHYSICIAN: Randolph Laboy M.D. REFERRING PHYSICIAN: Judy Ortega M.D. REASON FOR CONSULTATION: Management of chest pain. HISTORY OF PRESENT ILLNESS: The patient is a very unfortunate 68-year-old female, who presents to the hospital with complaints of left precordial chest pain that is described as pressure like with associated shortness of breath. This has been progressively worse in the past two to three hours today and she decided to come to the hospital. She denies any prior history of hypertension or diabetes. Her risk CAD risk factors only includes hypercholesterolemia for which she takes atorvastatin. The patient is admitted to telemetry unit. Cardiology consultation was made at the request of Dr. Ortega. PAST MEDICAL HISTORY: Includes hypercholesteremia, history of pulmonary embolism, history of depression, and history of headaches. PAST SURGICAL HISTORY: None. ALLERGIES: No known drug allergies. MEDICATIONS: List of medication includes aspirin 81 mg p.o. daily, atorvastatin 10 mg p.o. nightly, Zithromax 250 mg daily, calcium carbonate one tablet daily, Keflex 500 mg q.6 h., clopidogrel 75 mg daily, Colace 100 mg twice daily, [place] 5/325 mg one tablet q.6 h. p.r.n. pain, lansoprazole 30 mg p.o. daily, Mobic 15 mg p.o. daily, omeprazole 20 mg p.o. daily, Tamiflu 75 mg twice daily, Promethazine VC Syrup 473 mL p.o. daily, vitamin B6 50 mg p.o. daily, Zoloft 50 mg p.o. daily, and tramadol 50 mg q.6 h. SOCIAL HISTORY: Denies any tobacco, alcohol, or illicit drug use. FAMILY HISTORY: No premature coronary artery disease in the first-degree relatives. REVIEW OF SYSTEMS: A 12-system review done essentially negative except what was mentioned in the history of present illness. PHYSICAL EXAMINATION: VITAL SIGNS: Blood pressure is 119/67, pulse 97, respirations 21, and temperature 98.2 degrees Fahrenheit. O2 saturation 95% on room air. GENERAL: The patient is a very unfortunate 68-year-old female, in no apparent respiratory distress. Alert and oriented x4. HEENT: Atraumatic and normocephalic. Anicteric. Pupils are equal, round, and reactive to light and accommodation. Extraocular muscles intact. NECK: JVP less than 5 cm. No carotid bruits. Carotid upstrokes 2+ bilaterally. CARDIOVASCULAR: Normal S1, S2. Regular rate and rhythm. No murmurs, gallops, or rubs. PMI is at fourth intercostal space at the midclavicular line. LUNGS: Clear to auscultation bilaterally. ABDOMEN: Soft, nontender, and nondistended. No hepatosplenomegaly. Positive bowel sounds. EXTREMITIES: No evidence of edema, clubbing, or cyanosis. LABORATORY FINDINGS: Sodium is 145, potassium 4.5, chloride 111, bicarbonate 22, BUN 15, and creatinine 0.8. Glucose is 192. Calcium is 8.9. Troponin I x2 positive 0.076 and 0.083. ProBNP is 668. WBC is 7.7, hemoglobin 13.4, hematocrit 40.9, and platelet count 238,000. Chest x-ray shows no acute cardiopulmonary disease. 2-D echocardiography shows normal LV systolic function with LVEF of approximately 60% to 65%. No wall motion abnormalities. Normal E to A ratio consistent with normal diastolic function. Right ventricular systolic pressure measured at 34 mmHg consistent with mild pulmonary hypertension by echocardiography. ASSESSMENT AND PLAN: The patient is a very unfortunate 68-year-old female, seen in Cardiology consultation. 1. Atypical chest pain. However given slight elevation of troponin I level, I would like to obtain myocardial perfusion imaging study, which will be rescheduled. A 12-lead electrocardiogram does not show any evidence of ischemia. The pattern of troponin I rise is somewhat not typical for acute coronary syndrome or plaque rupture. 2-D echocardiography has not shown any wall motion abnormalities with LVEF approximately 60% to 65%. 2. History of hypercholesterolemia. We will obtain lipid panel in a.m. The patient will be continued on atorvastatin. 3. History of pulmonary embolism. The patient has been on a combination of aspirin and Plavix, the detail of which is quite unknown. I would like to thank Dr. Ortega for allowing me to participate in the care of this patient. Randolph Laboy M.D. DR: DEVON JOB#: [id number] CC:
[2018-10-30] VITALS: BP 123/75
[2018-10-30 04:00] VITALS: BP_SYST 123; BP_SYST 131; BP_SYST 141; BP_DIAS 54; BP_DIAS 62; BP_DIAS 75
[2018-10-30 07:35] LABS: BASOPHILS % (AUTO) 0.8 % (0.0-2.0); HEMATOCRIT 36.1 % (37.0-47.0); HEMOGLOBIN 12.5 G/DL (12.0-16.0); LYMPHOCYTES % (AUTO) 30.6 % (20.0-45.0); MEAN CORPUSCULAR VOLUME 83 FL (80-99); MONOCYTES % (AUTO) 7.5 % (1.0-10.0); PLATELET COUNT 226 K/UL (150-450); RED BLOOD COUNT 4.37 M/UL (4.20-5.40); RED CELL DISTRIBUTION WIDTH 11.2 % (11.6-14.8); WHITE BLOOD COUNT 7.9 K/UL (4.8-10.8)
[2018-10-30 08:00] VITALS: BP 149/68
--- NOTE | 2018-10-30 08:23 | History & Physical ---
History and Physical History & Physicial seen and examined. Full dictation completed 820 AM Judy Ortega MD Oct 30, 2018 08:23
--- NOTE | 2018-10-30 08:24 | General Progress Note ---
Assessment/Plan Assessment/Plan: Full Dictation in progress A/P: 1- ACS 2- DM Plan: Pending cardiac stress test Subjective Allergies: Coded Allergies: No Known Allergies (Unverified , 07/16/12) Objective Last 24 Hour Vital Signs Date Time Temp Pulse Resp B/P (MAP) Pulse Ox O2 Delivery O2 Flow Rate FiO2 10/30/18 04:00 98.3 59 18 131/54 (79) 95 10/30/18 04:00 58 10/30/18 00:00 98.2 72 18 123/75 (91) 97 10/30/18 00:00 62 10/29/18 21:00 Room Air 10/29/18 20:00 98.4 65 18 137/74 (95) 96 10/29/18 20:00 61 10/29/18 16:00 98.2 68 18 113/71 (85) 96 10/29/18 16:00 62 10/29/18 13:32 Room Air 10/29/18 13:25 97.0 65 18 110/74 (86) 98 10/29/18 13:19 62 10/29/18 12:56 98.3 60 19 120/47 99 Room Air 10/29/18 12:00 98.3 60 19 120/47 99 Room Air 10/29/18 11:00 98.0 67 17 111/57 99 Room Air 10/29/18 10:00 71 19 105/58 99 Room Air 10/29/18 08:50 73 16 Room Air 10/29/18 08:50 73 18 110/55 100 Room Air 10/29/18 08:42 98.2 97 21 119/67 (84) 95 Room Air Intake and Output 10/29/18 10/30/18 19:00 07:00 Intake Total 1100 ml Balance 1100 ml Intake Oral 0 ml IV Total 500 ml Other 600 ml # Voids 2 Laboratory Tests 10/29/18 09:15: Sodium Level 145, Potassium Level 4.5, Chloride Level 111H, Carbon Dioxide Level 22, Anion Gap 12, Blood Urea Nitrogen 15, Creatinine 0.8, Estimat Glomerular Filtration Rate > 60, Glucose Level 192H, Calcium Level 8.9, Total Bilirubin 0.5, Aspartate Amino Transf (AST/SGOT) 17, Alanine Aminotransferase ( ALT/SGPT) 20, Alkaline Phosphatase 63, Total Creatine Kinase 167, Creatine Kinase MB 1.7, Creatine Kinase MB Relative Index 1.0, Troponin I 0.076H, Pro-B- Type Natriuretic Peptide 668H, Total Protein 7.2, Albumin 3.5, Globulin 3.7, Albumin/Globulin Ratio 0.9L, Lipase 104, Thyroid Stimulating Hormone (TSH) 1.213 10/29/18 09:53: Troponin I 0.083H, White Blood Count 7.7, Red Blood Count 4.74, Hemoglobin 13.4 , Hematocrit 40.9, Mean Corpuscular Volume 86, Mean Corpuscular Hemoglobin 28.3 , Mean Corpuscular Hemoglobin Concent 32.9, Red Cell Distribution Width 11.9, Platelet Count 238, Mean Platelet Volume 7.0, Neutrophils (%) (Auto) 74.6, Lymphocytes (%) (Auto) 18.2L, Monocytes (%) (Auto) 5.4, Eosinophils (%) (Auto) 1.2, Basophils (%) (Auto) 0.6 10/29/18 20:40: Troponin I 0.104H 10/30/18 06:40: Sodium Level [Pending], Potassium Level [Pending], Chloride Level [Pending], Carbon Dioxide Level [Pending], Blood Urea Nitrogen [Pending], Creatinine [ Pending], Estimat Glomerular Filtration Rate [Pending], Glucose Level [Pending] , Calcium Level [Pending], Total Bilirubin [Pending], Aspartate Amino Transf ( AST/SGOT) [Pending], Alanine Aminotransferase (ALT/SGPT) [Pending], Alkaline Phosphatase [Pending], Troponin I [Pending], Total Protein [Pending], Albumin [ Pending], Globulin [Pending], Thyroid Stimulating Hormone (TSH) [Pending], White Blood Count 7.9, Red Blood Count 4.37, Hemoglobin 12.5, Hematocrit 36.1L, Mean Corpuscular Volume 83, Mean Corpuscular Hemoglobin 28.6, Mean Corpuscular Hemoglobin Concent 34.6, Red Cell Distribution Width 11.2L, Platelet Count 226, Mean Platelet Volume 6.1L, Neutrophils (%) (Auto) 58.0, Lymphocytes (%) (Auto) 30.6, Monocytes (%) (Auto) 7.5, Eosinophils (%) (Auto) 3.0, Basophils (%) (Auto ) 0.8, Hemoglobin A1c 6.8H, Triglycerides Level [Pending], Cholesterol Level [ Pending], LDL Cholesterol [Pending], HDL Cholesterol [Pending], Cholesterol/HDL Ratio [Pending] Height (Feet): 5 Height (Inches): 3.00 Weight (Pounds): 180 Judy Ortega MD Oct 30, 2018 08:23
[2018-10-30 08:31] LABS: ALANINE AMINOTRANSFERASE 14 U/L (12-78); ALBUMIN 3.4 G/DL (3.4-5.0); ALKALINE PHOSPHATASE 60 U/L (46-116); ANION GAP 9 mmol/L (5-15); ASPARTATE AMINO TRANSFERASE 8 U/L (15-37); BILIRUBIN,TOTAL 0.3 MG/DL (0.2-1.0); BLOOD UREA NITROGEN 22 mg/dL (7-18); CALCIUM 8.8 MG/DL (8.5-10.1); CARBON DIOXIDE 26 MMOL/L (21-32); CHLORIDE 108 MMOL/L (98-107); CHOLESTEROL 195 MG/DL (< 200); CREATININE 0.7 MG/DL (0.55-1.30); HDL CHOLESTEROL 63 MG/DL (40-60); POTASSIUM 4.5 MMOL/L (3.5-5.1); SODIUM 143 MMOL/L (136-145); TRIGLYCERIDES 181 MG/DL (30-150)
[2018-10-30] MEDS: Aspirin EC 81mg tab ORAL SCH (08:54)
[2018-10-30] MEDS: Enoxaparin 40mg Inj SUBQ SCH (08:55)
[2018-10-30] MEDS: NovoLOG Insulin Flexpen SUBQ SCH ×3 (11:30→20:55)
[2018-10-30 12:00] VITALS: BP 137/79
[2018-10-30 16:00] VITALS: BP 127/72
--- NOTE | 2018-10-30 16:15 | History and Physical Report ---
DATE OF ADMISSION: 10/29/2018 SOURCE OF INFORMATION: Patient and EMR. HISTORY OF PRESENT ILLNESS: The patient is a 68-year-old female with history of hyperlipidemia, coronary artery disease who presented with the chest pain for the last couple of days. At the time of evaluation, the patient denies any chest pain or shortness of breath. The patient denies any loss of consciousness. The patient describes the pain in the anterior aspect of the chest wall. No alleviating or aggravating factor. Initial vital signs in the emergency room shows stable vital signs with abnormal first set of the troponin levels. FAMILY HISTORY: Reviewed noncontributory. SOCIAL HISTORY: The patient denies history of illicit drug abuse, smoking, or alcohol abuse. HOME MEDICATIONS: Including Plavix, aspirin, and sertraline. REVIEW OF SYSTEMS: All 14 elements of review of systems reviewed. Pertinent positive and negative as above. ALLERGIES: NKDA. PHYSICAL EXAMINATION: VITAL SIGNS: Blood pressure 120/80, temperature 98.2, pulse oximetry 98% on room air, respiratory rate 18. HEAD AND NECK: Atraumatic, normocephalic. CHEST: Clear to auscultation. HEART: S1, S2. Regular rate and rhythm. ABDOMEN: Soft. No organomegaly. MUSCULOSKELETAL: No gross lateralized motor deficit. NEUROLOGY: Awake, alert, oriented x3. LABORATORY DATA: Labs dated 10/29/2018 shows WBC 7.7, hemoglobin of 13.4, troponin 0.07, glucose of 192, TSH of 1.2. ASSESSMENT: 1. Acute coronary syndrome. 2. Diabetes type 2 - new diagnosis. 3. Hypertension. 4. Coronary artery disease (probable diagnosis). 5. GI, DVT prophylaxis. PLAN OF CARE: I will start the patient on the sliding scale insulin. Cardiology notified. Continue with the aspirin, sublingual Nitro. Judy Ortega M.D. DR: BRENDAN JOB#: [id number] CC:
--- NOTE | 2018-10-30 18:59 | Cardiology Progress Note ---
Assessment/Plan Assessment/Plan 1. Atypical chest pain. A 12-lead electrocardiogram does not show any evidence of ischemia. The pattern of troponin I rise is somewhat not typical for acute coronary syndrome or plaque rupture. 2-D echocardiography has not shown any wall motion abnormalities with LVEF approximately 60% to 65%. Nuclear MPI in the morning. 2. History of hypertriglyceridemia. 3. History of pulmonary embolism. The patient has been on a combination of aspirin and Plavix, the detail of which is quite unknown. Subjective Subjective Sinus rhythm at rate of 67. Objective Last 24 Hour Vital Signs Date Time Temp Pulse Resp B/P (MAP) Pulse Ox O2 Delivery O2 Flow Rate FiO2 10/30/18 16:00 67 10/30/18 16:00 98.1 71 18 127/72 (90) 98 10/30/18 12:00 97.2 62 20 137/79 (98) 98 10/30/18 12:00 64 10/30/18 09:00 Room Air 10/30/18 08:00 97.7 72 20 149/68 (95) 95 10/30/18 08:00 82 10/30/18 04:00 98.3 59 18 131/54 (79) 95 10/30/18 04:00 58 10/30/18 00:00 98.2 72 18 123/75 (91) 97 10/30/18 00:00 62 10/29/18 21:00 Room Air 10/29/18 20:00 98.4 65 18 137/74 (95) 96 10/29/18 20:00 61 Intake and Output 10/29/18 10/30/18 19:00 07:00 Intake Total 1100 ml Balance 1100 ml Intake Oral 0 ml IV Total 500 ml Other 600 ml # Voids 2 2D Echo: LVEF 55%, no wall motion abn. Mild LEYDI/RVE, RVSP 34 mmHg, grade I LVDD. Laboratory Tests Test 10/29/18 20:40 10/30/18 06:40 10/30/18 09:55 Troponin I 0.104 ng/mL (0.000-0.056) 0.086 ng/mL (0.000-0.056) 0.000 ng/mL (0.000-0.056) White Blood Count 7.9 K/UL (4.8-10.8) Red Blood Count 4.37 M/UL (4.20-5.40) Hemoglobin 12.5 G/DL (12.0-16.0) Hematocrit 36.1 % (37.0-47.0) L Mean Corpuscular Volume 83 FL (80-99) Mean Corpuscular Hemoglobin 28.6 PG (27.0-31.0) Mean Corpuscular Hemoglobin Concent 34.6 G/DL (32.0-36.0) Red Cell Distribution Width 11.2 % (11.6-14.8) L Platelet Count 226 K/UL (150-450) Mean Platelet Volume 6.1 FL (6.5-10.1) L Neutrophils (%) (Auto) 58.0 % (45.0-75.0) Lymphocytes (%) (Auto) 30.6 % (20.0-45.0) Monocytes (%) (Auto) 7.5 % (1.0-10.0) Eosinophils (%) (Auto) 3.0 % (0.0-3.0) Basophils (%) (Auto) 0.8 % (0.0-2.0) Sodium Level 143 MMOL/L (136-145) Potassium Level 4.5 MMOL/L (3.5-5.1) Chloride Level 108 MMOL/L (98-107) H Carbon Dioxide Level 26 MMOL/L (21-32) Anion Gap 9 mmol/L (5-15) Blood Urea Nitrogen 22 mg/dL (7-18) H Creatinine 0.7 MG/DL (0.55-1.30) Estimat Glomerular Filtration Rate > 60 mL/min (>60) Glucose Level 112 MG/DL (74-106) H Hemoglobin A1c 6.8 % (4.3-6.0) H Calcium Level 8.8 MG/DL (8.5-10.1) Total Bilirubin 0.3 MG/DL (0.2-1.0) Aspartate Amino Transf (AST/SGOT) 8 U/L (15-37) L Alanine Aminotransferase (ALT/SGPT) 14 U/L (12-78) Alkaline Phosphatase 60 U/L (46-116) Total Protein 6.9 G/DL (6.4-8.2) Albumin 3.4 G/DL (3.4-5.0) Globulin 3.5 g/dL Albumin/Globulin Ratio 1.0 (1.0-2.7) Triglycerides Level 181 MG/DL (30-150) H Cholesterol Level 195 MG/DL (< 200) LDL Cholesterol 99 mg/dL (<100) HDL Cholesterol 63 MG/DL (40-60) H Cholesterol/HDL Ratio 3.1 (3.3-4.4) L Thyroid Stimulating Hormone (TSH) 1.464 uiU/mL (0.358-3.740) Objective HEENT: Atraumatic and normocephalic. Anicteric. Pupils are equal, round, and reactive to light and accommodation. Extraocular muscles intact. NECK: JVP less than 5 cm. No carotid bruits. Carotid upstrokes 2+ bilaterally. CARDIOVASCULAR: Normal S1, S2. Regular rate and rhythm. No murmurs, gallops, or rubs. PMI is at fourth intercostal space at the midclavicular line. LUNGS: Clear to auscultation bilaterally. ABDOMEN: Soft, nontender, and nondistended. No hepatosplenomegaly. Positive bowel sounds. EXTREMITIES: No evidence of edema, clubbing, or cyanosis. Randolph Laboy MD Oct 30, 2018 18:59
[2018-10-30 20:00] VITALS: BP 134/67
[2018-10-31] VITALS: BP 116/58
[2018-10-31 04:00] VITALS: BP 137/57
[2018-10-31] MEDS: NovoLOG Insulin Flexpen SUBQ SCH ×2 (06:10→11:15)
[2018-10-31 07:21] LABS: BASOPHILS % (AUTO) 0.6 % (0.0-2.0); EOSINOPHILS % (AUTO) 2.2 % (0.0-3.0); HEMATOCRIT 39.8 % (37.0-47.0); HEMOGLOBIN 13.2 G/DL (12.0-16.0); LYMPHOCYTES % (AUTO) 26.2 % (20.0-45.0); MEAN CORPUSCULAR VOLUME 86 FL (80-99); MONOCYTES % (AUTO) 7.6 % (1.0-10.0); NEUTROPHILS % (AUTO) 63.4 % (45.0-75.0); PLATELET COUNT 240 K/UL (150-450); RED BLOOD COUNT 4.63 M/UL (4.20-5.40); RED CELL DISTRIBUTION WIDTH 11.9 % (11.6-14.8); WHITE BLOOD COUNT 8.6 K/UL (4.8-10.8)
[2018-10-31 07:49] LABS: ALANINE AMINOTRANSFERASE 17 U/L (12-78); ALBUMIN 3.6 G/DL (3.4-5.0); ALKALINE PHOSPHATASE 62 U/L (46-116); ANION GAP 10 mmol/L (5-15); ASPARTATE AMINO TRANSFERASE 6 U/L (15-37); BILIRUBIN,TOTAL 0.4 MG/DL (0.2-1.0); BLOOD UREA NITROGEN 21 mg/dL (7-18); CALCIUM 9.1 MG/DL (8.5-10.1); CARBON DIOXIDE 26 MMOL/L (21-32); CHLORIDE 107 MMOL/L (98-107); CREATININE 0.7 MG/DL (0.55-1.30); POTASSIUM 4.3 MMOL/L (3.5-5.1); SODIUM 143 MMOL/L (136-145)
[2018-10-31 08:00] VITALS: BP 139/75
[2018-10-31] MEDS: Aspirin EC 81mg tab ORAL SCH (08:44)
[2018-10-31] MEDS: Enoxaparin 40mg Inj SUBQ SCH ×2 (08:45→08:52)
--- NOTE | 2018-10-31 10:46 | Cardiology Report ---
APPROVED REPORT EXAM: Two-dimensional and M-mode echocardiogram with Doppler and color Doppler. INDICATION Chest Pain M-Mode DIMENSIONS IVSd1.3 (0.7-1.1cm)Left Atrium (MM)3.4 (1.6-4.0cm) LVDd3.9 (3.5-5.6cm)Aortic Root3.0 (2.0-3.7cm) PWd1.5 (0.7-1.1cm)Aortic Cusp Exc.2.0 (1.5-2.0cm) LVDs3.1 (2.5-4.0cm) PWs1.9 cm Normal left ventricular chamber size. Mildly depressed systolic function and wall motion. Left ventricular ejection fraction estimated to be 60-65%. Mild left ventricular hypertrophy. No evidence of pericardial effusion. Mild right atrial and right ventricular enlargement. Left atrial chamber size is within normal limits. Focal aortic valve sclerosis with adequate cusp excursion. Thickened mitral valve leaflets with normal excursion. Mitral annulus and aortic root calcification. Pulmonic valve not well visualized. Normal tricuspid valve structure. IVC is normal in size with physiological collapse. A color flow and spectral Doppler study was performed and revealed: No aortic regurgitation. Trace mitral regurgitation. reduced left ventricular relaxation c/w impaired relaxation diastolic dysfunction. Mild tricuspid regurgitation. Tricuspid systolic velocities suggests peak right ventricular systolic pressure of 34 mmHg. No pulmonic regurgitation present.
[2018-10-31 12:00] VITALS: BP 128/78
[2018-10-31] MEDS ORDERED: Lexiscan 0.4mg/5ml syringe IV SCH (12:00)
--- NOTE | 2018-10-31 15:42 | Diagnostic Imaging Report ---
Indications: 68-year-old female with chest pain Technique: Single day single isotope protocol utilized. Initially, resting images obtained using IV administration 10.1 millicuries 99M technetium Myoview. Subsequently, patient underwent lexiscan stress testing. See cardiology report for details. During Lexiscan infusion, IV administration 31 mCi 99 M technetium Myoview. SPECT and planar images obtained. SPECT images gated to 8 phases of the cardiac cycle were also obtained, and reformatted into cine images for evaluation of ejection fraction. Comparison: none Findings: Presence or absence of symptoms is not described in the cardiology report. Per cardiology report, resting EKG demonstrates normal sinus rhythm. During infusion, there was T inversion in multiple leads at one minute resolved a minute later. Imaging demonstrates no evidence of fixed nor reversible poststress perfusion defects. Normal cardiac chamber size. Calculated post stress ejection fraction 71%. Gated images demonstrate no evidence of wall motion abnormality Impression: Nonischemic clinical response to pharmacologic stress, per cardiology report Nondiagnostic electrocardiographic response to pharmacologic stress, per cardiology report No imaging findings to suggest ischemia, at level of stress achieved. Calculated post stress ejection fraction greater than 70%
--- NOTE | 2018-10-31 19:35 | Cardiology Progress Note ---
Assessment/Plan Assessment/Plan 1. Atypical chest pain. A 12-lead electrocardiogram does not show any evidence of ischemia. The pattern of troponin I rise is somewhat not typical for acute coronary syndrome or plaque rupture. 2-D echocardiography has not shown any wall motion abnormalities with LVEF approximately 60% to 65%. Nuclear MPI shows no myocardial wall ischemia. 2. History of hypertriglyceridemia. 3. History of pulmonary embolism. The patient has been on a combination of aspirin and Plavix, the detail of which is quite unknown. Subjective Subjective Sinus rhythm at rate of 91. Objective Last 24 Hour Vital Signs Date Time Temp Pulse Resp B/P (MAP) Pulse Ox O2 Delivery O2 Flow Rate FiO2 10/31/18 12:00 91 10/31/18 12:00 98.2 87 20 128/78 (95) 97 10/31/18 09:00 Room Air 10/31/18 08:00 65 10/31/18 08:00 98.4 82 18 139/75 (96) 96 10/31/18 04:00 97.7 61 18 137/57 (83) 96 10/31/18 04:00 61 10/31/18 00:00 60 10/30/18 21:00 Room Air 10/30/18 20:00 99.0 71 18 134/67 (89) 98 10/30/18 20:00 71 Intake and Output 10/30/18 10/31/18 19:00 07:00 Intake Total 1150 ml Balance 1150 ml Intake Oral 550 ml Other 600 ml # Voids 2 4 2D Echo: LVEF 55%, no wall motion abn. Mild LEYDI/RVE, RVSP 34 mmHg, grade I LVDD. Laboratory Tests Test 10/31/18 06:16 White Blood Count 8.6 K/UL (4.8-10.8) Red Blood Count 4.63 M/UL (4.20-5.40) Hemoglobin 13.2 G/DL (12.0-16.0) Hematocrit 39.8 % (37.0-47.0) Mean Corpuscular Volume 86 FL (80-99) Mean Corpuscular Hemoglobin 28.5 PG (27.0-31.0) Mean Corpuscular Hemoglobin Concent 33.1 G/DL (32.0-36.0) Red Cell Distribution Width 11.9 % (11.6-14.8) Platelet Count 240 K/UL (150-450) Mean Platelet Volume 7.2 FL (6.5-10.1) Neutrophils (%) (Auto) 63.4 % (45.0-75.0) Lymphocytes (%) (Auto) 26.2 % (20.0-45.0) Monocytes (%) (Auto) 7.6 % (1.0-10.0) Eosinophils (%) (Auto) 2.2 % (0.0-3.0) Basophils (%) (Auto) 0.6 % (0.0-2.0) Sodium Level 143 MMOL/L (136-145) Potassium Level 4.3 MMOL/L (3.5-5.1) Chloride Level 107 MMOL/L (98-107) Carbon Dioxide Level 26 MMOL/L (21-32) Anion Gap 10 mmol/L (5-15) Blood Urea Nitrogen 21 mg/dL (7-18) H Creatinine 0.7 MG/DL (0.55-1.30) Estimat Glomerular Filtration Rate > 60 mL/min (>60) Glucose Level 111 MG/DL (74-106) H Calcium Level 9.1 MG/DL (8.5-10.1) Total Bilirubin 0.4 MG/DL (0.2-1.0) Aspartate Amino Transf (AST/SGOT) 6 U/L (15-37) L Alanine Aminotransferase (ALT/SGPT) 17 U/L (12-78) Alkaline Phosphatase 62 U/L (46-116) Total Protein 7.1 G/DL (6.4-8.2) Albumin 3.6 G/DL (3.4-5.0) Globulin 3.5 g/dL Albumin/Globulin Ratio 1.0 (1.0-2.7) Objective HEENT: Atraumatic and normocephalic. Anicteric. Pupils are equal, round, and reactive to light and accommodation. Extraocular muscles intact. NECK: JVP less than 5 cm. No carotid bruits. Carotid upstrokes 2+ bilaterally. CARDIOVASCULAR: Normal S1, S2. Regular rate and rhythm. No murmurs, gallops, or rubs. PMI is at fourth intercostal space at the midclavicular line. LUNGS: Clear to auscultation bilaterally. ABDOMEN: Soft, nontender, and nondistended. No hepatosplenomegaly. Positive bowel sounds. EXTREMITIES: No evidence of edema, clubbing, or cyanosis. Randolph Laboy MD Oct 31, 2018 19:35
--- NOTE | 2018-11-01 10:37 | Discharge Summary ---
Discharge Summary Discharge Summary _ DATE OF ADMISSION: DATE OF DISCHARGE: 10/31/2018 Patient left AGAINST MEDICAL ADVICE REASON FOR ADMISSION: 68 years old female with past medical history of high cholesterol , pulmonary emboli, anxiety, depression , presented to emergency department with left- sided precordial chest discomfort pressure-like for few days with associated shortness of breath. . Patient reported that symptoms worsened over the last 2 to 3 hours. No fever or chills. Upon evaluation vital signs were stable. Laboratory work-up revealed no leukocytosis , stable hemoglobin and hematocrit. Stable electrolytes and renal parameters . Glucose 192 . Troponin elevated -0.076, pro BNP 668 . TSH within normal limits . Urinalysis revealed pyuria, +3 leukocyte esterase and few bacteria . Chest x-ray demonstrated no acute cardiopulmonary pathology. Patient admitted to telemetry floor for further management. CONSULTANTS: piece dyeing machine tender Dr. Laboy [facility] COURSE: Patient admitted to telemetry floor. Serial troponin showed mild elevation, last troponin negative. Echocardiogram revealed preserved ejection fraction 60 to 65% with no evidence of wall motion abnormality. Right ventricular systolic pressure of 34 consistent with a mild pulmonary hypertension. Normal diastolic function. Patient was on combination of aspirin and Plavix for history of pulmonary embolism , details of which were unknown . Per piece dyeing machine tender , patient had atypical chest, however given slight elevation in troponin , piece dyeing machine tender recommended to obtain myocardial perfusion imaging study. Myocardial perfusion scan revealed no evidence of ischemia. Calculated post stress ejection fraction was greater than 70%. Per piece dyeing machine tender, troponin pattern of elevation was not typical for acute coronary syndrome or plaque rupture. Echocardiogram did not show any wall motion abnormality , with preserved ejection fraction. Statin was continued. Lipid panel revealed elevated triglycerides with stable total cholesterol and LDL. Patient was educated on low-fat low-cholesterol diet. Pain management was addressed as needed. Nitroglycerin was on board . Blood pressure remained stable. Hemoglobin A1c -6.8. Blood sugar was managed with sliding scale of insulin as needed. DVT and GI prophylaxis provided. Urine culture revealed Strep group B with colony count 20-30 K and mixed gram- positive organisms with colony count 10-20 K. Patient decided to leave AGAINST MEDICAL ADVICE prior to obtaining discharge order. The risks and consequences of signing AGAINST MEDICAL ADVICE were discussed with patient in detail. Patient verbalized understanding, nevertheless signed AMA form and left. FINAL DIAGNOSES: Atypical chest pain Hypercholesterolemia History of pulmonary emboli I have been assigned to dictate discharge summary for this account. I was not involved in the patient's management. Smita Beverly NP Nov 01, 2018 10:37
--- NOTE | 2018-11-09 22:48 | Coder Physician Query ---
Clarification is required for compliance, coding accuracy, and to reflect severity of illness for this patient Dear Dr. ORTEGA Date: 11/09/18 Operations Clerk/CDS' Name: NayeOjCHIDIPRECIOUS LOVETT Per sealing and canceling machine operator, troponin pattern of elevation was not typical for acute coronary syndrome or plaque rupture. Echocardiogram did not show any wall motion abnormality , with preserved ejection fraction. Statin was continued. Echocardiogram revealed preserved ejection fraction 60 to 65% with no evidence of wall motion abnormality. Right ventricular systolic pressure of 34 consistent with a mild pulmonary hypertension. Normal diastolic function. FINAL DIAGNOSES: Atypical chest pain Hypercholesterolemia History of pulmonary emboli Please document the suspected etiology of Chest Pain: [] Aortic dissection [] Acute myocardial infarction [] Acute Coronary Syndrome [] Pericarditis [] Anxiety [] Cancer [] Pneumonia [] Costochondritis [] Pneumothorax [] GERD/Esophagitis [] Pulmonary embolism [x] Other: atypical MSK type chest wall pain [] Unable to determine Reynaldo Ortega MD Judy Ortega M.D. Date & Time Please also document in your Progress Notes and/or Discharge Summary and indicate if the condition was present on admission. [facility]
== END 2018-10-31 15:34 | disposition left against medical advice (07) | DRG 313 ==
LOC: EMR 10:00 → EDBEDREQ 12:40 → 2E 13:10 → OBSVTOIN 13:29 → 2E 10-30 00:50
DX: R07.89 Other chest pain (principal); I10 Essential (primary) hypertension; Z79.02 Long term (current) use of antithrombotics/antiplatelets; Z79.82 Long term (current) use of aspirin; E11.9 Type 2 diabetes mellitus without complications; I25.10 Atherosclerotic heart disease of native coronary artery without angina pectoris; Z86.711 Personal history of pulmonary embolism; E78.00 Pure hypercholesterolemia, unspecified
CPT/HCPCS: 36415; 71045; 78452; 80053; 80061; 82550; 82553; 82962; 83036; 83690; 83880; 84443; 84484; 85025; 93005; 93017; 93306; 96374; 99285; G0378; J1815; J2785